=== PATIENT | female | born 1945 | race Asian ===

== ENCOUNTER 2022-03-12 10:50 | Day surgery (SDC) | payer MEDICARE ==
[2022-03-11 12:10] LABS: SARS-CoV-2 Antigen Rapid Res Negative (Negative)
[2022-03-12] MEDS ORDERED: Ringers Lactate 1,000 ML IV ONE (11:23)
[2022-03-12] MEDS ORDERED: LIDOCAINE 1% MPF 5 ML VIAL ONE (11:50)
[2022-03-12] MEDS ORDERED: TRIAMCINOLONE ACETON 40 MG/ML VIAL ONE (11:51)
[2022-03-12 11:55] VITALS: O2SAT 98
[2022-03-12] MEDS ORDERED: LIDOCAINE 2% MPF 5 ML VIAL ONE (13:12)
[2022-03-12] MEDS ORDERED: propofoL 200 MG/20 ML VIAL IV ONE ×2 (13:12→13:27)
[2022-03-12 14:30] VITALS: BP 150/73; TEMP 97.6
--- NOTE | 2022-03-12 15:55 | RAD REPORT ---
EXAM DESCRIPTION: RAD - Fluoro Guide Spinal Inj - 03/12/2022 2:06 pm CLINICAL HISTORY: INJECTION COMPARISON: No comparisons FINDINGS/IMPRESSION: Three fluoroscopic images submitted from an injection at the lumbar spine. Fluoro time: 40.7 seconds
== END 2022-03-12 14:25 | disposition home or self-care (01) ==
LOC: OR 10:50
PROVIDERS: ATTEND Pain Medicine Interventional Pain Medicine
PROC: B01BZZZ Fluoroscopy of Spinal Cord (ICD-10-PCS; 2022-03-12)
PROC: 3E0R3BZ Introduction of Anesthetic Agent into Spinal Canal, Percutaneous Approach (ICD-10-PCS; principal; 2022-03-12 13:00)
DX: M54.50 Low back pain, unspecified (principal); M54.12 Radiculopathy, cervical region; M46.1 Sacroiliitis, not elsewhere classified; M54.16 Radiculopathy, lumbar region; M60.9 Myositis, unspecified; G89.4 Chronic pain syndrome; I10 Essential (primary) hypertension; Z20.822 Contact with and (suspected) exposure to COVID-19
CPT/HCPCS: 36415; 77003; 87811; 62323; J2704 ×2; J3301; J2001 ×2; J7120

== ENCOUNTER 2024-06-16 23:20 | Emergency (ER) | payer MEDICARE ==
--- OUTSIDE RECORDS SUMMARY | 2024-06-16 23:25 | XMS REPORT | Continuity of Care Document ---
Author Name Unknown Address [address] [facility] [address] [place] [address] [facility] Address [address] [place] [address] Care Team Providers Care Deputy Treasurer Name Role Phone Bree Pineda MD, William Edward Primary Care Physi [facility] Arthur Giron Attending Clinician Unavailable BUBBA LANZA Attending Clinician Unavailable Luis Houston MD Attending Clinician LUIS HOUSTON Attending Clinician Unavailable Vilma Edge Attending Clinician [phone] [email or web address]_S Attending Clinician Unavaila lizeth LOVETT_T Attending Clinician Unavailable ABBI JAMES Attending Clinician Unavailab Abbi Mann DO Attending Clinician [phone] Doctor Unassigned, [place] Attending Clinician U navailable GAYLORD_S Attending Clinician Unavailable MARCELLO WASHINGTON Attending Clinician Unavailable Marcello Washington MD Attending Clinician [phone] DONNA PARADA Attending Clinician Unavailable Donna Parada PA-C Attending Clinician [phone] Khloe Mejia MD Attending Clinician [phone] MARIO HERNANDEZ Attending Clinician Unavailable Maroi Hicks S Attending Clinician [phone] Norbert ERICKSON, Yaima Koenig Attending Clinician Unavailab le Only, Ang Db Test Attending Clinician Unavailbenji e Unknown, Attending Attending Clinician Unavailab TERRY Ma Attending Clinician Unavailable UNKNOWN, ATTENDING Attending Clinician Unavailab NAVEEN Vega Attending Clinician Unavailable Naveen Guillen MD Attending Clinician [phone], [facility] Attending Clinician Unavailable KHLOE MEJIA Attending Clinician Unavai TONY Delcid Attending Clinician Unavail able Nurse, Adc Pob Immunization Attending Clinician Unavailable Tony Ibrahim DO Attending Clinician [phone] Lab, Ang - Db Attending Clinician Unavailable Gudelia Gaines Attending Clinician [phone] GUDELIA MCGRATH Attending Clinician Unavailable Melissa Morales Attending Clinician [phone] Joanna ERICKSON, Shima Attending Clinician Unavailab le Only, Gal Adult Uc Test Attending Clinician Unav ailable Pob, Ad[facility] Lab Main Attending Clinician UnavailGypsy Clinton MD Attending Clinician [phone] GYPSY CHEUNG Attending Clinician Unavailbenji e Provider, [facility] Attending Clinician Un available Rahel Stinson Attending Clinician [phone] RAHEL HENRIQUEZ Attending Clinician Unavailable Bubba Lanza MD Attending Clinician [phone] LOUISE JIMENEZ Attending Clinician Unavailable Only, Adc Test Attending Clinician Unavailable Jose Antonio Kaiser MD Attending Clinician [phone] Kinga ERICKSON, Allison Hogue Attending Clinician Unavail able Nigel Puri DO Attending Clinician [phone] NIGEL PURI Attending Clinician Unavailable Jeremías Quarles I Attending Clinician Unavailab diaz Shields BARKER OPERATOR, Karime Soria Attending Clinician [phone] Markus Edward Attending Clinician [phone] Jose PRINCE, Kong Attending Clinician [phone] VENESSA HERNANDEZ Attending Clinician Unavailable BLESSING UNGER Attending Clinician Unavailab diaz Fontenot MIRROR FINISHING MACHINE OPERATOR, Nesha Rogers Attending Clinician Unavail able Edmar PT, Annalisa Soria Attending Clinician Unavailab diaz Briceno PT, Delicia Attending Clinician Unavailable Macario ERICKSON, Sushma Attending Clinician BUBBA Lazo Admitting Clinician Unavailable [email or web address]_S Admitting Clinician Unavaila lizeth OWENS_T Admitting Clinician Unavailable ABBI JAMES Admitting Clinician Unavailab diaz GAYLORD_S Admitting Clinician Unavailable MARCELLO WASHINGTON Admitting Clinician Unavailable DONNA PARADA Admitting Clinician Unavailable NAVEEN GUILLEN Admitting Clinician Unavailable Bubba Lanza MD Admitting Clinician [phone] NIGEL PURI Admitting Clinician Unavailable Kong Garcia MD Admitting Clinician [phone] GYPSY CHEUNG Admitting Clinician Unavailabl BLESSING Pa Admitting Clinician Unavailab le Payers Payer Name Policy Type Policy Number Effective Date Expirati on Date Source [employer] MEDICARE ADVANTAGE [id number] 2019 00:00:00 [employer] Medicare [id number] 2023 00:00:00 [employer] (MEDICARE REPLACEMENT HMO) [id number] 2021 00:00:00 [employer] MEDICARE ADVANTAGE PLAN [id number] 2009 00:00:00 Problems Condition Name Condition Details Condition Category Status Onset Date Resolution Date Last Treatment Date Treating Clinician Comments Source Anal fissure Anal Fissure Problem Active 01-31 00:00: 00 [facility] Prolapse of female genital organs Prolapse of Female Genital Organs Problem Active 01-31 00:00: 00 [facility] Abnormal C-reactive protein Abnormal C-reactive protein Disease Active 0 715 00:00: 00 [facility] Multiple joint pain Multiple joint pain Disease Active 0 715 00:00: 00 Sumiyessenia tejas Van Epic Elevated C-reactive protein (CRP) Elevated C-reactive protein (CRP) Disease Active 0 7 00:00: 00 Sumiyessenia tejas Van Epic 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 Disease Active 0 15 00:00: 00 [facility] Epic 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 Active 0 15 00:00: 00 [facility]all [facility] Epic Gastroesop hageal reflux disease Gastroesop hageal reflux disease Disease Active 0 24 00:00: 00 [facility]all [facility] Hyperchole sterolemia Hyperchole sterolemia Problem Active 0 8-24 00:00: 00 [facility] Hypertensi ve disorder Hypertensi ve Disorder Problem Active 0 8-24 00:00: 00 [facility] Atrophic vaginitis Atrophic Vaginitis Problem Active 0 8-24 00:00: 00 [facility] Left lower quadrant pain Left Lower Quadrant Pain Problem Active 0 3-08 00:00: 00 [facility] Screening mammograph y Screening Mammograph y Problem Active 0 2-01 00:00: 00 [facility] Anxiety Anxiety Disease Active 0 1-24 00:00: 00 [facility]all Van Epic Pruritis of skin of anogenital region Pruritis of Skin of Anogenital Region Problem Active 0 9-16 00:00: 00 [facility] Constipati on Constipati on Problem Active 0 8-17 00:00: 00 [facility] 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 Active 0 8-17 00:00: 00 [facility] Lateral cystocele Lateral Cystocele Problem Active 0 8-17 00:00: 00 [facility] Lichen simplex chronicus Lichen Simplex Chronicus Problem Active 0 8-17 00:00: 00 [facility] Menopause present Menopause Present Problem Active 0 8-17 00:00: 00 [facility] Disorder associated with menstruati on AND/OR menopause Disorder Associated with Menstruati on AND/OR Menopause Problem Active 01-14 00:00: 00 [facility] Kidney stone Kidney stone Disease Active 07-11 00:00: 00 [facility] Ureteral stone with hydronephr osis Ureteral stone with hydronephr osis Disease Active 07-11 00:00: 00 Overview: Formattin g of this note might be different from the original. Added automatic ally from request for surgery [id number] [facility] Internal derangemen t of right knee Internal derangemen t of right knee Disease Active 12-28 00:00: 00 [facility] Vaginal atrophy Vaginal atrophy Disease Active 2018-06 00:00: 00 [facility] Jerome Left knee pain Left knee pain Disease Active 01-06 00:00: 00 [facility] Left knee pain Left knee pain Disease Active 01-06 00:00: 00 [facility] Essential hypertensi on Essential hypertensi on Disease Active 2014-06 00:00: 00 Kendall Jerome Hyperchole sterolemia Hyperchole sterolemia Disease Active 2014-06 00:00: 00 [facility] Jerome Chronic pain syndrome Chronic pain disorder Problem [facility] Chronic pain Chronic pain Problem [facility] Herpes simplex Herpes simplex Disease Resolve d 8-24 00:00: 00 2024-01-11 00:00:00 2024-01-11 17:28:46 Kendall Jerome Subacromia l bursitis of right shoulder joint Subacromia l bursitis of right shoulder joint Disease Resolve d 3-31 00:00: 00 2024-01-11 00:00:00 2024-01-11 17:28:46 Kendall Jerome Left lower quadrant pain Left lower quadrant pain Disease Resolve d 3-07 00:00: 00 2024-01-11 00:00:00 2024-01-11 17:28:46 [facility]all Jerome Candidiasi s of vagina Candidiasi s of vagina Disease Resolve d 2022-1 0-26 00:00: 00 2024-01-11 00:00:00 2024-01-11 17:28:46 Kendall Jerome Inflammati on of sacroiliac joint Inflammati on of sacroiliac joint Disease Resolve d 11-13 00:00: 00 2024-01-11 00:00:00 2024-01-11 17:28:46 Kendlal Jerome Ureteral stone with hydronephr osis Ureteral stone with hydronephr osis Disease Resolve d 1 00:00: 00 2024-01-11 00:00:00 2024-01-11 17:28:46 Kendall Jerome Internal derangemen t of right knee Internal derangemen t of right knee Disease Resolve d 12-28 00:00: 00 2024-01-11 00:00:00 2024-01-11 17:28:46 Kendall Jerome Rapid palpitatio ns Rapid palpitatio ns Disease Resolve d 12-27 00:00: 00 2024-01-11 00:00:00 2024-01-11 17:28:46 [facility]all Jerome Anal fissure Anal fissure Disease Resolve d 2018-06 2-30 00:00: 00 2024-01-11 00:00:00 2024-01-11 17:28:46 Kendall Jerome Allergies, Adverse Reactions, Alerts Allergy Name Allergy Type Status Severity Reaction(s) Onset Date Inactive Date Treating Clinician Comments Source PREDNISO NE DRUG INGREDI Active Other 01-10 00:00: 00 [facility] Predniso ne Propensi ty to adverse reaction s Active Other 01-10 00:00: 00 Hair loss Kendall Jerome Tetracyc line Allergy to substanc e Active 11-13 00:00: 00 Other Reaction( s): Not available Kendall Jerome B Complex- C-Min-Fe -Fa Propensi ty to adverse reaction s Active Rash 09-01 00:00: 00 Rash and itching all over to [facility] B COMPLEX- C-MIN-FE -FA DRUG Active Rash 2019-0 3-06 00:00: 00 [facility] Predniso ne Propensi ty to adverse reaction s Active Unknown - See comments 2014-06 00:00: 00 Stomach pain [facility] Tetracyc line Propensi ty to adverse reaction s Active Unknown - See comments 2014-06 00:00: 00 Yeast infection [facility] PREDNISO NE DRUG INGREDI Active Unknown-Cmnt 2014-06 00:00: 00 [facility] TETRACYC LINE DRUG INGREDI Active Unknown-Cmnt 2014-06 00:00: 00 [facility] Predniso ne Allergy to substanc e Active [facility] tetracyc line tetracyc line Active Unknown [facility] ALLERGIE S NOT ON FILE SYSTEMIC Active [facility] ALLERGIE S NOT ON FILE SYSTEMIC Active [facility] Social History Social Habit Start Date Stop Date Quantity Comments Source Sexual orientation 2024-01-05 07:00:23 Heterosexual (finding) [facility] Gender identity 2023-12-22 16:37:54 Identifies as female gender (finding) [facility] History of Tobacco Use [facility] Sex Assigned At [facility] Alcoholic beverage intake 2024-02-02 00:00:00 2024-02-02 00:00:00 Current drinker of alcohol (finding) [facility] History of Social function 2024-02-02 00:00:00 2024-02-02 00:00:[address] [facility] Alcohol intake 2023-03-29 00:00:00 2023-03-29 00:00:00 Current drinker of alcohol (finding) [facility] Exposure to SARS-CoV-2 (event) 2021-12-18 00:00:00 2021-12-28 08:39:00 Not sure [facility] Tobacco use and exposure 2020-07-20 00:00:00 2020-07-20 00:00:00 Smokeless tobacco non-user [facility] History SDOH Alcohol Frequency 2020-07-02 00:00:00 2020-07-02 00:00:00 99 [facility] History SDOH Alcohol Std Drinks 2020-07-02 00:00:00 2020-07-02 00:00:00 99 [facility] History SDOH Alcohol Binge 2020-07-02 00:00:00 2020-07-02 00:00:00 99 [facility] History SDOH Food Worry 2019-12-28 00:00:00 2019-12-28 00:00:00 1 [facility] History SDOH Food Scarcity 2019-12-28 00:00:00 2019-12-28 00:00:00 1 [facility] History SDOH Transport Med 2019-12-28 00:00:00 2019-12-28 00:00:00 2 [facility] History SDOH Transport Non-Med 2019-12-28 00:00:00 2019-12-28 00:00:00 2 [facility] Alcohol Comment 2018-04-21 00:00:00 2018-04-21 00:00:00 social [facility] Smoking Status Start Date Stop Date Source Never Smoker [facility] Medications Ordered Medication Name Filled Medication Name Start Date Stop Date Current Medication? Ordering Clinician Indication Dosage Frequency Signature (SIG) Comments Components Source traMADol HCl 50 MG traMADol HCl 50 MG 03-22 00:00: 00 No 1{table t_as_ne eded} BID traMADol HCl 50 MG traMADol (Ultram) 50 MG tablet traMADol (Ultram) 50 MG tablet 01-26 00:00: 00 01-10 00:00 :00 No 1{tbl} Q12H 1 tablet in the morning and 1 tablet in the evening. Kendall Jerome famotidine (Pepcid) 20 MG tablet famotidine (Pepcid) 20 MG tablet 01-10 14:08: 48 01-10 00:00 :00 No 1 tablet at bedtime as needed; Once a day; 30 day(s) Kendall Van [facility] triamcinolo ne (Kenalog) 0.1 % cream triamcinolo ne (Kenalog) 0.1 % cream 01-10 13:57: 49 Yes 1 applicatio n; Two times a Week; 30 days Kendall Van [facility] gabapentin (Neurontin) 100 MG capsule gabapentin (Neurontin) 100 MG capsule 01-10 13:57: 47 Yes TAKE 2 CAPSULES BY MOUTH EVERY 8 HOURS Oral for 5 Days Kendall tejas Rehan Epic erythromyci n (Romycin) 5 MG/GM ophthalmic ointment erythromyci n (Romycin) 5 MG/GM ophthalmic ointment 01-10 13:57: 45 Yes APPLY OINTMENT AT BEDTIME FOR 7 DAYS TO EYELIDS Kendall tejas Rehan Epic Pregabalin 50 MG Pregabalin 50 MG -19 00:00: 00 No 1{capsu le} BID Pregabalin 50 MG tiZANidine HCl 4 MG tiZANidine HCl 4 MG 2022-06 2-06 00:00: 00 No 1{table t_as_ne eded} tiZANidine HCl 4 MG ketorolac (TORADOL) injection 15 mg 2022-06 03:30: 00 03-30 02:41 :00 No 15mg 15 mg, Slow IV Push, ONCE, 1 dose, On 03/29/23 at 2230, Routine [facility] famotidine (PEPCID (PF)) injection 20 mg 2022-06 02:45: 00 03-30 02:41 :00 No 20mg 20 mg, Slow IV Push, ONCE, 1 dose, On 03/29/23 at 2145, [place] [facility] ketorolac tromethamin e (TORADOL) injection 15 mg 12-28 15:00: 00 12-28 15:01 :00 No 15mg 15 mg, Slow IV Push, ONCE, 1 dose, On 12/28/21 at 1000, [place] [facility] ibuprofen 600 mg tablet 12-28 00:00: 00 Yes [id number] 600mg Take 1 tablet by mouth every 8 (eight) hours as needed for Pain (scale 4-6). [facility] TRIAMCINOLO NE ACETONIDE 0.1 % ointment 08-23 00:00: 00 Yes [id number] APPLY OINTMENT TOPICALLY TWICE DAILY [facility] PROCTO-MED HC 2.5 % rectal cream 08-23 00:00: 00 Yes [id number] INSERT CREAM RECTALLY TWICE DAILY DIRECTED [facility] acetaminoph en-codeine (TYLENOL-CO DEINE #3) 300-30 mg tablet 07-06 00:00: 00 Yes [id number] 1{tbl} Take 1 tablet by mouth every 4 (four) hours as needed for Pain (scale 7-10). Indication s: acute pain [facility] methocarbam oL (ROBAXIN) 500 mg tablet 07-06 00:00: 00 Yes [id number] 500mg Take 1 tablet by mouth every 6 (six) hours as needed for Pain (scale 7-10) (MUSCLE SPASM). [facility] conjugated estrogens 1.25 mg tablet 07-02 00:00: 00 Yes [id number] 1.25mg Take 1 tablet by mouth daily. [facility] amLODIPine (Norvasc) 5 MG tablet amLODIPine (Norvasc) 5 MG tablet 2020-06 00:00: 00 Yes 1{tbl} QD Take 1 tablet by mouth 1 time each day. Kendall Van [facility] FLUCONAZOLE 150 mg tablet 03-20 00:00: 00 Yes [id number] TAKE ONE TABLET BY MOUTH A ONE-TIME DOSE [facility] TRIAMCINOLO NE ACETONIDE 0.1 % ointment 03-20 00:00: 00 08-23 00:00 :00 No [id number] APPLY OINTMENT TOPICALLY TWICE DAILY [facility] loratadine 10 mg tablet 03-06 00:00: 00 Yes [id number] 10mg Take 1 tablet by mouth daily. [facility] cefUROXime 500 mg tablet 02-12 00:00: 00 Yes [id number] 500mg Take 1 tablet by mouth 2 (two) times daily. [facility] mupirocin 2 % ointment 11-12 00:00: 00 Yes [id number] Apply to area(s) 3 (three) times daily. [facility] famotidine (PEPCID) 20 mg tablet 24 14:22: 04 Yes 20mg Take 20 mg by mouth 2 (two) times daily. [facility] acetaminoph en (TYLENOL) 325 mg tablet 07-26 00:00: 00 Yes [id number] 650mg Take 2 tablets by mouth every 6 (six) hours as needed for Pain (scale 1-3) or Alternate with ibuprofen for pain scale 4-6. [facility] conjugated estrogens (PREMARIN) 0.625 mg/gram vaginal cream 12-29 00:00: 00 Yes [id number] .5g Insert 0.5 g into vagina 2 (two) times per week for Other (vaginal atrophy). [facility] acyclovir 200 mg capsule TAKE 1 CAPSULE BY MOUTH TWICE DAILY acyclovir 200 mg capsule TAKE 1 CAPSULE BY MOUTH TWICE DAILY No acyclovir 200 mg capsule TAKE 1 CAPSULE BY MOUTH TWICE DAILY [facility] atorvastati n 20 mg tablet TAKE 1 TABLET BY MOUTH ONCE DAILY FOR 90 DAYS atorvastati n 20 mg tablet TAKE 1 TABLET BY MOUTH ONCE DAILY FOR 90 DAYS No atorvastat in 20 mg tablet TAKE 1 TABLET BY MOUTH ONCE DAILY FOR 90 DAYS [facility] estradiol 0.01% (0.1 mg/gram) vaginal cream INSERT 0.5 GRAMS VAGINALLY THREE TIMES A WEEK AT BEDTIME estradiol 0.01% (0.1 mg/gram) vaginal cream INSERT 0.5 GRAMS VAGINALLY THREE TIMES A WEEK AT BEDTIME No estradiol 0.01% (0.1 mg/gram) vaginal cream INSERT 0.5 GRAMS VAGINALLY THREE TIMES A WEEK AT BEDTIME [facility] losartan 100 mg-hydrochl orothiazide 12.5 mg tablet TAKE 1 TABLET BY MOUTH ONCE DAILY losartan 100 mg-hydrochl orothiazide 12.5 mg tablet TAKE 1 TABLET BY MOUTH ONCE DAILY No losartan 100 mg-hydroch lorothiazi de 12.5 mg tablet TAKE 1 TABLET BY MOUTH ONCE DAILY [facility] pantoprazol e 40 mg tablet,chhaya yed release TAKE 1 TABLET BY MOUTH ONCE DAILY pantoprazol e 40 mg tablet,chhaya yed release TAKE 1 TABLET BY MOUTH ONCE DAILY No pantoprazo le 40 mg tablet,del ayed release TAKE 1 TABLET BY MOUTH ONCE DAILY [facility] Stool Softener Stool Softener No Stool Softener [facility] triamcinolo ne acetonide 0.5 % topical ointment APPLY A THIN LAYER OF OINTMENT TOPICALLY TO AFFECTED AREA TWICE DAILY triamcinolo ne acetonide 0.5 % topical ointment APPLY A THIN LAYER OF OINTMENT TOPICALLY TO AFFECTED AREA TWICE DAILY No triamcinol one acetonide 0.5 % topical ointment APPLY A THIN LAYER OF OINTMENT TOPICALLY TO AFFECTED AREA TWICE DAILY [facility] diclofenac sodium 75 mg tablet,chhaya yed release TAKE 1 TABLET BY MOUTH TWICE DAILY diclofenac sodium 75 mg tablet,chhaya yed release TAKE 1 TABLET BY MOUTH TWICE DAILY No diclofenac sodium 75 mg tablet,del ayed release TAKE 1 TABLET BY MOUTH TWICE DAILY [facility] pregabalin 50 mg capsule TAKE 1 CAPSULE BY MOUTH TWICE DAILY pregabalin 50 mg capsule TAKE 1 CAPSULE BY MOUTH TWICE DAILY No pregabalin 50 mg capsule TAKE 1 CAPSULE BY MOUTH TWICE DAILY [facility] ergocalcife rol (vitamin D2) 1,250 mcg (50,000 unit) capsule TAKE 1 CAPSULE BY MOUTH ONCE A WEEK ergocalcife rol (vitamin D2) 1,250 mcg (50,000 unit) capsule TAKE 1 CAPSULE BY MOUTH ONCE A WEEK No ergocalcif stephanie (vitamin D2) 1,250 mcg (50,000 unit) capsule TAKE 1 CAPSULE BY MOUTH ONCE A WEEK [facility] methylpredn isolone 4 mg tablet TAKE 2 TABLETS BY MOUTH ONCE DAILY methylpredn isolone 4 mg tablet TAKE 2 TABLETS BY MOUTH ONCE DAILY No methylpred nisolone 4 mg tablet TAKE 2 TABLETS BY MOUTH ONCE DAILY [facility] Nifedipine 0.2%/Lidoca ine 4% Cream use small amount at anus 2 times a day Nifedipine 0.2%/Lidoca ine 4% Cream use small amount at anus 2 times a day No Nifedipine 0.2%/Lidoc troy 4% Cream use small amount at anus 2 times a day [facility] Estradiol 0.1 MG/GM Estradiol 0.1 MG/GM No Estradiol 0.1 MG/GM Pantoprazol e Sodium 40 MG Pantoprazol e Sodium 40 MG No Pantoprazo le Sodium 40 MG Diclofenac Sodium 75 MG Diclofenac Sodium 75 MG No Diclofenac Sodium 75 MG Xiidra 5 % Xiidra 5 % No Xiidra 5 % Losartan Potassium-H CTZ 100-12.5 MG Losartan Potassium-H CTZ 100-12.5 MG No Losartan Potassium- HCTZ 100-12.5 MG Lagevrio 200 MG Lagevrio 200 MG No Lagevrio 200 MG Atorvastati n Calcium 20 MG Atorvastati n Calcium 20 MG No Atorvastat in Calcium 20 MG Triamcinolo ne Acetonide 0.5 % Triamcinolo ne Acetonide 0.5 % No Triamcinol one Acetonide 0.5 % Immunizations Ordered Immunization Name Filled Immunization Name Date Status Comments Source SARS-COV-2 COVID-19 [facility]ERNA BOOSTER VACCINE 2021-05-29 00:00:00 Completed [facility] SARS-COV-2 COVID-19 MODERNA BOOSTER VACCINE 2021-05-29 00:00:00 Completed [facility] SARS-COV-2 COVID-19 MODERNA BOOSTER VACCINE 2021-05-29 00:00:00 Completed [facility] SARS-COV-2 COVID-19 MODERNA BOOSTER VACCINE 2021-05-29 00:00:00 Completed [facility] SARS-COV-2 COVID-19 MODERNA BOOSTER VACCINE 2021-05-29 00:00:00 Completed [facility] SARS-COV-2 COVID-19 MODERNA 0.25ML BOOSTER VACCINE 2021-05-29 00:00:00 Completed [facility] SARS-COV-2 COVID-19 MODERNA 0.25ML BOOSTER VACCINE 2021-05-29 00:00:00 Completed [facility] SARS-COV-2 COVID-19 MODERNA 0.25ML BOOSTER VACCINE 2021-05-29 00:00:00 Completed [facility] TDAP 2020-11-09 00:00:00 Completed [facility] TDAP 2020-11-09 00:00:00 Completed [facility] TDAP 2020-11-09 00:00:00 Completed [facility] TDAP 2020-11-09 00:00:00 Completed [facility] TDAP 2020-11-09 00:00:00 Completed [facility] TDAP 2020-11-09 00:00:00 Completed [facility] TDAP 2020-11-09 00:00:00 Completed [facility] TDAP 2020-11-09 00:00:00 Completed [facility] SARS-COV-2 COVID-19 MODERNA VACCINE 2020-08-29 00:00:00 Completed [facility] SARS-COV-2 COVID-19 MODERNA VACCINE 2020-08-29 00:00:00 Completed [facility] SARS-COV-2 COVID-19 MODERNA VACCINE 2020-08-29 00:00:00 Completed [facility] SARS-COV-2 COVID-19 MODERNA VACCINE 2020-08-29 00:00:00 Completed [facility] SARS-COV-2 COVID-19 MODERNA VACCINE 2020-08-29 00:00:00 Completed [facility] SARS-COV-2 COVID-19 MODERNA VACCINE 2020-08-29 00:00:00 Completed [facility] SARS-COV-2 COVID-19 MODERNA VACCINE 2020-08-29 00:00:00 Completed [facility] SARS-COV-2 COVID-19 MODERNA 12+ YRS VACCINE 2020-08-29 00:00:00 Completed [facility] SARS-COV-2 COVID-19 MODERNA VACCINE 2020-08-02 00:00:00 Completed [facility] SARS-COV-2 COVID-19 MODERNA VACCINE 2020-08-02 00:00:00 Completed [facility] SARS-COV-2 COVID-19 MODERNA VACCINE 2020-08-02 00:00:00 Completed [facility] SARS-COV-2 COVID-19 MODERNA VACCINE 2020-08-02 00:00:00 Completed [facility] SARS-COV-2 COVID-19 MODERNA VACCINE 2020-08-02 00:00:00 Completed [facility] SARS-COV-2 COVID-19 MODERNA VACCINE 2020-08-02 00:00:00 Completed [facility] SARS-COV-2 COVID-19 MODERNA VACCINE 2020-08-02 00:00:00 Completed [facility] SARS-COV-2 COVID-19 MODERNA 12+ YRS VACCINE 2020-08-02 00:00:00 Completed [facility] Influenza Virus Vaccine 2020-04-17 00:00:00 Completed [facility] Influenza Virus Vaccine 2020-04-17 00:00:00 Completed [facility] Influenza Virus Vaccine 2020-04-17 00:00:00 Completed [facility] Influenza Virus Vaccine 2020-04-17 00:00:00 Completed [facility] Influenza Virus Vaccine 2020-04-17 00:00:00 Completed [facility] Influenza Virus Vaccine 2020-04-17 00:00:00 Completed [facility] Influenza Virus Vaccine 2020-04-17 00:00:00 Completed [facility] Influenza Virus Vaccine 2020-04-17 00:00:00 Completed [facility] Influenza Virus Vaccine Recomb Quad IM, Preserv and ABX Free 18-64 YRS 2019-04-14 00:00:00 Completed [facility] Pneumococcal Polysaccharide, PPSV23 (PNEUMOVAX) 2019-04-14 00:00:00 Completed [facility] Influenza Virus Vaccine Recomb Quad IM, Preserv and ABX Free 18-64 YRS 2019-04-14 00:00:00 Completed [facility] Pneumococcal Polysaccharide, PPSV23 (PNEUMOVAX) 2019-04-14 00:00:00 Completed [facility] Influenza Virus Vaccine Recomb Quad IM, Preserv and ABX Free 18-64 YRS 2019-04-14 00:00:00 Completed [facility] Pneumococcal Polysaccharide, PPSV23 (PNEUMOVAX) 2019-04-14 00:00:00 Completed [facility] Influenza Virus Vaccine Recomb Quad IM, Preserv and ABX Free 18-64 YRS 2019-04-14 00:00:00 Completed [facility] Pneumococcal Polysaccharide, PPSV23 (PNEUMOVAX) 2019-04-14 00:00:00 Completed [facility] Influenza Virus Vaccine Recomb Quad IM, Preserv and ABX Free 18-64 YRS 2019-04-14 00:00:00 Completed [facility] Pneumococcal Polysaccharide, PPSV23 (PNEUMOVAX) 2019-04-14 00:00:00 Completed [facility] Influenza Virus Vaccine Recomb Quad IM, Preserv and ABX Free 18-64 YRS 2019-04-14 00:00:00 Completed [facility] Pneumococcal Polysaccharide, PPSV23 (PNEUMOVAX) 2019-04-14 00:00:00 Completed [facility] Influenza Virus Vaccine Recomb Quad IM, Preserv and ABX Free 18-64 YRS 2019-04-14 00:00:00 Completed [facility] Pneumococcal Polysaccharide, PPSV23 (PNEUMOVAX) 2019-04-14 00:00:00 Completed [facility] Influenza Virus Vaccine Recomb Quad IM, Preserv and ABX Free 18-64 YRS 2019-04-14 00:00:00 Completed [facility] Pneumococcal Polysaccharide, PPSV23 (PNEUMOVAX) 2019-04-14 00:00:00 Completed [facility] Influenza Virus Vaccine 2017-04-04 00:00:00 Completed [facility] Influenza Virus Vaccine 2017-04-04 00:00:00 Completed [facility] Influenza Virus Vaccine 2017-04-04 00:00:00 Completed [facility] Influenza Virus Vaccine 2017-04-04 00:00:00 Completed [facility] Influenza Virus Vaccine 2017-04-04 00:00:00 Completed [facility] Influenza Virus Vaccine 2017-04-04 00:00:00 Completed [facility] Influenza Virus Vaccine 2017-04-04 00:00:00 Completed [facility] Influenza Virus Vaccine 2017-04-04 00:00:00 Completed [facility] Td 1990-11-14 00:00:00 Completed [facility] Td 1990-11-14 00:00:00 Completed [facility] Td 1990-11-14 00:00:00 Completed [facility] Td 1990-11-14 00:00:00 Completed [facility] Td 1990-11-14 00:00:00 Completed [facility] Td 1990-11-14 00:00:00 Completed [facility] Td 1990-11-14 00:00:00 Completed [facility] TD, NOS 1990-11-14 00:00:00 Completed [facility] Influenza Virus Vaccine Unknown Completed [facility] TD, NOS Unknown Completed [facility] Influenza Virus Vaccine Recomb Quad IM, Preserv and ABX Free 1864 YRS Unknown Completed [facility] Pneumococcal Polysaccharide, PPSV23 (PNEUMOVAX) Unknown Completed [facility] SARS-COV-2 COVID-19 MODERNA 12+ YRS VACCINE Unknown Completed [facility] TDAP Unknown Completed [facility] SARS-COV-2 COVID-19 MODERNA 0.25ML BOOSTER VACCINE Unknown Completed [facility] Vital Signs Vital Name Observation Time Observation Value Comments S mayra Body Weight 2024-04-04 00:00:00 177.4 [lb_av] [facility] Height 2024-04-04 00:00:00 63 [in_i] [facility] BMI (Body Mass Index) 2024-04-04 00:00:00 31.4 kg/m2 [facility] BP Systolic 2024-04-04 00:00:00 142 mm[Hg] [facility] BP Diastolic 2024-04-04 00:00:00 65 mm[Hg] [facility] BMI (Body Mass Index) 2024-03-09 00:00:00 31.2 kg/m2 [facility] Body Weight 2024-03-09 00:00:00 176 [lb_av] [facility] BP Systolic 2024-03-09 00:00:00 157 mm[Hg] [facility] BP Diastolic 2024-03-09 00:00:00 79 mm[Hg] [facility] Height 2024-03-09 00:00:00 63 [in_i] [facility] height 2024-02-24 09:30:00 64 [in_i] [facility] weight-kg 2024-02-24 09:30:00 83.91 kg [facility] bmi 2024-02-24 09:30:00 31.75 kg/m2 Kathy r [facility] heart rate 2024-02-24 09:30:00 68 /min [facility] blood pressure systolic 2024-02-24 09:30:00 136 mm[Hg] [facility] blood pressure diastolic 2024-02-24 09:30:00 78 mm[Hg] [facility] Systolic blood pressure 2024-02-02 08:42:00 154 mm[Hg] [facility] marie Epic Diastolic blood pressure 2024-02-02 08:42:00 90 mm[Hg] [facility] marie Epic Heart rate 2024-02-02 08:42:00 72 /min Rebecca gunter Yancey Epic Body weight 2024-02-02 08:42:00 81.647 kg Oliver jordantejas Rehan Epic BMI 2024-02-02 08:42:00 30.90 kg/m2 Oliver ortegatejas Rehan Epic Systolic blood pressure 2024-02-02 08:42:00 154 mm[Hg] [facility] marie Epic Diastolic blood pressure 2024-02-02 08:42:00 90 mm[Hg] [facility] marie Epic Heart rate 2024-02-02 08:42:00 72 /min Memor ial Rehan Epic Body weight 2024-02-02 08:42:00 81.647 kg Oliver lon Maresann Epic BMI 2024-02-02 08:42:00 30.90 kg/m2 Oliver lon Maresann Epic BMI (Body Mass Index) 2024 00:00:00 32 kg/m2 [facility] Body Weight 2024 00:00:00 180.6 [lb_av] [facility] BP Diastolic 2024 00:00:00 71 mm[Hg] [facility] BP Systolic 2024 00:00:00 163 mm[Hg] [facility] Height 2024 00:00:00 63 [in_i] [facility] height 2024-01-27 09:30:00 64 [in_i] [facility] weight-kg 2024-01-27 09:30:00 83.91 kg [facility] bmi 2024-01-27 09:30:00 31.75 kg/m2 Kathy r [facility] heart rate 2024-01-27 09:30:00 64 /min [facility] blood pressure systolic 2024-01-27 09:30:00 133 mm[Hg] [facility] blood pressure diastolic 2024-01-27 09:30:00 75 mm[Hg] [facility] Systolic blood pressure 2024-01-11 13:46:00 146 mm[Hg] [facility] Epic Diastolic blood pressure 2024-01-11 13:46:00 79 mm[Hg] [facility] Epic Heart rate 2024-01-11 13:46:00 82 /min Memor ial Yancey Epic Body height 2024-01-11 13:46:00 162.6 cm Oliver lon Van Epic Body weight 2024-01-11 13:46:00 82.555 kg Oliver lon Maresann Epic BMI 2024-01-11 13:46:00 31.24 kg/m2 Oliver jordanl Rehan Epic Systolic blood pressure 2024-01-11 13:46:00 146 mm[Hg] [facility] Her marie Epic Diastolic blood pressure 2024-01-11 13:46:00 79 mm[Hg] [facility] Her marie Epic Heart rate 2024-01-11 13:46:00 82 /min Memor ial Rehan Epic Body height 2024-01-11 13:46:00 162.6 cm Oliver lon Van Epic Body weight 2024-01-11 13:46:00 82.555 kg Oliver lon Van Epic BMI 2024-01-11 13:46:00 31.24 kg/m2 Oliver lon Van Epic Height 2023-09-02 00:00:00 63 [in_i] [facility] Body Weight 2023-09-02 00:00:00 192.4 [lb_av] [facility] BP Systolic 2023-09-02 00:00:00 180 mm[Hg] [facility] BMI (Body Mass Index) 2023-09-02 00:00:00 34.1 kg/m2 [facility] BP Diastolic 2023-09-02 00:00:00 80 mm[Hg] [facility] Systolic blood pressure 2023-03-30 03:45:00 166 mm[Hg] [facility] Diastolic blood pressure 2023-03-30 03:45:00 65 mm[Hg] [facility] Heart rate 2023-03-30 03:45:00 64 /min [facility] Respiratory rate 2023-03-30 03:45:00 15 /min [facility] Oxygen saturation in Arterial blood by Pulse oximetry 2023-03-30 03:45:00 100 /min [facility] Body temperature 2023-03-30 02:21:00 37.33 Whitney [facility] Body height 2023-03-30 02:21:00 162.6 cm [facility] Body weight 2023-03-30 02:21:00 89.812 kg [facility] BMI 2023-03-30 02:21:00 33.99 kg/m2 [facility] Systolic blood pressure 2021-12-28 18:00:00 171 mm[Hg] [facility] Diastolic blood pressure 2021-12-28 18:00:00 91 mm[Hg] [facility] Heart rate 2021-12-28 18:00:00 65 /min Un[facility] Respiratory rate 2021-12-28 18:00:00 23 /min [facility] Oxygen saturation in Arterial blood by Pulse oximetry 2021-12-28 18:00:00 100 /min [facility] Body temperature 2021-12-28 13:43:00 37.56 Whitney [facility] Body height 2021-12-28 13:41:00 162.6 cm [facility] Body weight 2021-12-28 13:41:00 90.719 kg [facility] BMI 2021-12-28 13:41:00 34.33 kg/m2 [facility] acute hospital Systolic blood pressure 2021-08-09 14:43:00 135 mm[Hg] [facility] Diastolic blood pressure 2021-08-09 14:43:00 68 mm[Hg] [facility] Heart rate 2021-08-09 14:43:00 73 /min Unive [facility] Body height 2021-08-09 14:43:00 162.6 cm [facility] Body weight 2021-08-09 14:43:00 91.627 kg [facility] BMI 2021-08-09 14:43:00 34.67 kg/m2 [facility] acute hospital Oxygen saturation in Arterial blood by Pulse oximetry 2021-08-09 14:43:00 95 /min [facility] Procedures Procedure Date / Time Performed Performing Clinician Source MAMMO, screening, digital, bilateral 2024-03-09 00:00:00 [facility] Sedimentation Rate 2024-02-02 00:00:00 [facility] C-Reactive Protein 2024-02-02 00:00:00 [facility] Complete Blood Count w/Diff and Platelet 2024-02-02 00:00:[address] [facility] Comprehensive Metabolic Panel 2024-02-02 00:00:[address] [facility] Vitamin D 25-Hydroxy 2024-01-11 00:00:[address] [facility] Ferritin 2024-01-11 00:00:[address] [facility] Uric Acid 2024-01-11 00:00:[address] [facility] Rheumatoid Factor 2024-01-11 00:00:00 [facility] orial [facility] Hepatitis B Surface Antigen 2024-01-11 00:00:[address] [facility] Hepatitis C Antibody w/HCV RNA PCR if Indicated 2024-01-11 00:00:[address] [facility] Hepatitis B core AB Total w/refl IgM 2024-01-11 00:00:[address] [facility] Cyclic Citrul Peptide Antibody IgG 2024-01-11 00:00:[address] [facility] US soft tissue extremity complete 2024-01-11 00:00:[address] [facility] XR CHEST 1 VW 2023-03-30 03:16:32 Abbi James U [facility] LIPASE 2023-03-30 02:28:00 Abbi James [facility] TROPONIN I 2023-03-30 02:28:00 Abbi James [facility] COMP. METABOLIC PANEL (73048) 2023-03-30 02:28:00 Abbi James [facility] CBC WITH DIFF 2023-03-30 02:28:00 Abbi James [facility] HB ECG ROUTINE & RHYTHM STRIP 2023-03-30 02:22:52 Abbi James [facility] NOTICE OF PRIVACY PRACTICES 2023-03-30 02:16:49 Doctor Unassigned, [place] [facility] CONSENT/REFUSAL FOR DIAGNOSIS AND TREATMENT 2023-03-30 02:16:26 Doctor Unassigned, [place] [facility] REFERRAL- REQUEST/RESPONSE 2022-11-07 05:01:00 Preston amaya Unassigned, [place] [facility] TROPONIN I 2021-12-28 16:43:00 Marcello [place] [facility] XR CHEST 1 VW 2021-12-28 14:20:20 Marcello [place] [facility] XR SHOULDER 2+ VW LEFT 2021-12-28 14:20:20 Darrel Washington [facility] COVID-19 (ID NOW RAPID TESTING) 2021-12-28 13:59:00 Marcello Washington [facility] TROPONIN I 2021-12-28 13:50:00 Marcello [place] [facility] COMP. METABOLIC PANEL (41460) 2021-12-28 13:50:00 Marcello Washington [facility] CBC WITH DIFF 2021-12-28 13:50:00 Marcello [place] [facility] PROTHROMBIN TIME / INR 2021-12-28 13:50:00 Darrel Washington [facility] ACTIVATED PARTIAL THRMPLAS CARMELLA 2021-12-28 13:50:00 Marcello Washington [facility] N-TERMINAL PRO-BNP 2021-12-28 13:50:00 Marcello Washington [facility] CONSENT/REFUSAL FOR DIAGNOSIS AND TREATMENT 2021-12-28 13:40:41 Doctor Unassigned, [place] [facility] EXTERNAL PROVIDER RECORDS 2021-11-16 05:01:00 Do ctor Unassigned, [place] [facility] XR FOOT <3 VW LEFT 2021-08-09 15:25:00 Mario Hernandez [facility] Delivery 1988-06-29 00:00:00 [facility] Procedure on Lower Leg 1988-06-29 00:00:00 [facility] Cholecystectomy (Gallbladder) 1987-06-29 00:00:00 [facility] Hysterectomy 1976-06-29 00:00:00 Ric Marie edical Encounters Start Date/Time End Date/Time Encounter Type Admission Type Attending [facility] Care Facility Care Department Encounter ID Source 2024-01-27 09:24:01 Outpatient Giron, Arthur CLS [facility] [id number] [facility] 2021-04-27 17:10:27 Outpatient BUBBA LANZA [facility] [id number] [facility] 2021-04-27 16:55:02 Emergency [facility] [id number] [facility] 2021-04-27 08:54:50 Emergency [facility] [id number] [facility] 2021-04-26 16:13:37 Emergency [facility] [id number] [facility] 2021-04-26 03:50:58 Emergency [facility] [id number] [facility] 2024-04-04 00:00:00 2024-04-04 00:00:00 ANAM Kilgore: [address], [place] [address] , Ph. [facility] - GC_GCBZW_Michelle Cardoso* [id number] [facility] 2024-03-22 00:00:00 2024-03-22 00:00:00 (TEL) [facility] [id number] [facility] 2024-03-09 00:00:00 2024-03-09 00:00:00 ANAM Kilgore: [address], [place] [address] , Ph. [facility] - GC_GCBZW_Michelle Cardoso* [id number] [facility] 2024-02-24 00:00:00 2024-02-24 00:00:00 Office Visit- Est Pt.- Level 4 [facility] [id number] [facility] 2024-02-11 00:00:00 2024-02-11 00:00:00 (Pain Mgmt) Pain Mgmt Procedures [facility] [id number] [facility] 2024-02-02 08:50:00 2024-02-02 09:29:00 Consult Luis Houston Rheumatol [facility] 1.2.840.114 350.1.13.70 8.2.7.2.686 [id number] Memoria l [facility] 2024-02-02 08:24:44 2024-02-02 09:29:00 Outpatient Elective LUIS HOUSTON MHEOUT MHEOUT [id number] MHEOUT 2024 00:00:00 2024 00:00:00 (TEL) [facility] [id number] [facility] 2024 00:00:00 2024 00:00:00 SUZANNE [place]: [address], [place] [address] , Ph. [facility] - GC_GCBZW_Michelle Cardoso* [id number] [facility] 2024-01-27 00:00:00 2024-01-27 00:00:00 Office Visit- Est Pt.- Level 4 CLS CLS [id number] [facility] 2024-01-19 08:30:50 2024-01-19 08:59:20 Outpatient Elective MHEOUT MHEOUT [id number] [facility]OUT 2024-01-11 14:30:00 2024-01-11 14:40:30 Consult Luis Houston Rheumatol [facility] 1.2.840.114 350.1.13.70 8.2.7.2.[id number] [facility] 2024-01-11 13:02:03 2024-01-11 14:40:30 Outpatient Elective LUIS HOUSTON MHEOUT MHEOUT [id number] [facility] 2023-10-15 13:30:00 2023-10-15 14:00:00 Annual D2Ne [place] [place] 2.16.840. [id number]. [id number] [facility] 2023-09-17 00:00:00 2023-09-17 00:00:00 Outpatient GC_GCBZW_Ka diyala_S [facility] [id number] [facility] 2023-09-02 00:00:00 2023-09-02 00:00:00 ANAM Kilgore: [address], [place] [address] , Ph. [facility] - GC_GCBZW_Michelle Cardoso* [id number] [facility] 2023-08-13 00:00:00 2023-08-13 00:00:00 Outpatient GC_GCBZW_Ka diyala_S [facility] [id number] [facility] 2023-08-12 00:00:00 2023-08-12 00:00:00 Outpatient GC_GCBZW_Ka diyala_S PRIV PRIV [id number] [facility] 2023-07-22 00:00:00 2023-07-22 00:00:00 Outpatient GC_GCBZW_Ka diyala_S PRIV PRIV [id number] [facility] 2023-05-16 00:00:00 2023-05-16 00:00:00 Outpatient GC_GCBZW_Ka diyala_S PRIV PRIV [id number] [facility] 2023-04-29 00:00:00 2023-04-29 00:00:00 Outpatient RACHELLBravo [facility]DONADO [facility] [id number] [facility] 2023-04-18 00:00:00 2023-04-18 00:00:00 Outpatient GC_GCBZW_Ka diyala_S PRIV PRIV [id number] [facility] 2023-03-29 21:25:00 2023-03-29 22:56:00 Emergency X ABBI JAMES [facility] ERT [id number] [facility] 2023-03-29 21:25:00 2023-03-29 22:56:00 Emergency Abbi James [facility] [id number] 350.1.13.10 4.2.7.2.686 [id number] [facility] 2023-03-21 00:00:00 2023-03-21 00:00:00 Outpatient GC_GCBZW_Ka diyala_S PRIV PRIV [id number] [facility] 2023-03-04 00:00:00 2023-03-04 00:00:00 Outpatient GC_GCBZW_Ka diyala_S PRIV PRIV [id number] [facility] 2023-02-18 00:00:00 2023-02-18 00:00:00 Outpatient GC_GCBZW_Ka diyala_S PRIV PRIV [id number] [facility] 2023-01-01 00:00:00 2023-01-01 00:00:00 Outpatient OWENS_T DMG DMG [id number] [facility] 2023-01-01 00:00:00 2023-01-01 00:00:00 Outpatient OWENS_T DMG DMG [id number] [facility] 2022-11-07 00:00:00 2022-11-07 00:00:00 Orders Only Doctor Unassigned, [place] [facility] 1..840.114 350.1.13.10 4.2.7.2.686 [id number] [facility] 2022-08-12 00:00:00 2022-08-12 00:00:00 Outpatient OWENS_T DMG DMG [id number] [facility] 2022-08-12 00:00:00 2022-08-12 00:00:00 Outpatient OWENS_T DMG DMG [id number] [facility] 2022-01-10 03:42:00 2022-01-10 03:42:00 Outpatient GAYLORD_S DMG DMG [id number] [facility] 2022-01-07 03:05:00 2022-01-07 03:05:00 Outpatient GAYLORD_S DMG DMG [id number] [facility] 2021-12-28 08:36:00 2021-12-28 13:13:00 Emergency X MARCELLO WASHINGTON [facility] ERT [id number] [facility] 2021-12-28 08:36:00 2021-12-28 13:13:00 Emergency Marcello Washington [facility] 1..840.114 350.1.13.10 4.2.7.2.686 [id number] [facility] 2021-11-18 09:00:00 2021-11-18 09:00:00 Outpatient DMG DMG [id number] [facility] 2021-11-16 00:00:00 2021-11-16 00:00:00 Orders Only Doctor Unassigned, [place] [facility] 1.2840.114 350.1.13.10 4.2.7.2.686 [id number] [facility] 2021-10-09 05:00:00 2021-10-09 05:00:00 Outpatient DMG [facility] [id number] [facility] 2021-09-20 13:03:05 2021-09-20 23:59:00 Outpatient R TAL [facility] [id number] [facility] 2021-09-20 13:03:05 2021-09-20 23:59:00 Hospital Encounter Nigelbeatriceethan Donna [facility] 1.2.840.114 350.1.13.10 4.2.7.2.686 [id number] [facility] 2021-08-23 00:00:00 2021-08-23 00:00:00 Refill Khloe Mej[facility] 1..840.114 350.1.13.10 4.2.7.2.686 [id number] [facility] 2021-08-23 00:00:00 2021-08-23 00:00:00 Refill Sarahethan [facility] BUILDING 1.2.840.114 350.1.13.10 4.2.7.2.686 [id number] [facility] 2021-08-09 09:15:00 2021-08-09 23:59:00 Outpatient R MARIO HERNANDEZ [facility] [id number] [facility] 2021-08-09 09:15:00 2021-08-09 23:59:00 Hospital Encounter Mario Hernandez [facility] 1.2.840.114 350.1.13.10 4.2.7.2.686 [id number] [facility] 2021-08-09 09:15:00 2021-08-09 09:15:00 Outpatient R HERNANDEZ MARIO [facility] [id number] [facility] 2021-08-09 08:30:00 2021-08-09 09:00:00 Office Visit Mario Hernandez [facility] 1.84114 350.1.13.10 4.2.7.2.686 [id number] [facility] 2021-08-09 00:00:00 2021-08-09 00:00:00 Orders Only Doctor Unassigned, [place] [facility] 1.84114 350.1.13.10 4.2.7.2.686 [id number] [facility] 2021-08-08 00:00:00 2021-08-08 00:00:00 Telephone Khloe Mejia [facility] 1.84114 350.1.13.10 4.2.7.2.686 [id number] [facility] 2021-07-09 00:00:00 2021-07-09 00:00:00 Letter (Out) Yaima Toussaint [facility] 1.114 350.1.13.10 4.2.7.2.686 [id number] [facility] 2021-07-08 09:30:00 2021-07-08 09:45:00 Laboratory Only Only, Ang Db Test Unknown, Attending [facility] 1.84114 350.1.13.10 4.2.7.2.686 [id number] [facility] 2021-07-08 09:30:00 2021-07-08 09:30:00 Outpatient R TERRY MANCIA [facility] [id number] [facility] 2021-07-08 00:00:00 2021-07-08 00:00:00 Letter (Out) Doctor Unassigned, [place] [facility] 1.2.840.114 350.1.13.10 4.2.7.2.686 [id number] [facility] 2021-07-08 00:00:00 2021-07-08 00:00:00 Letter (Out) Doctor Unassigned, [place] [facility] 1.2840.114 350.1.13.10 4.2.7.2.686 [id number] [facility] 2021-07-06 18:45:00 2021-07-06 18:45:00 Outpatient R UNKNOWN, ATTENDING [facility] [id number] [facility] 2021-07-06 13:58:00 2021-07-06 18:20:00 Emergency X NAVEEN GUILLEN [facility] ERT [id number] [facility] 2021-07-06 13:58:00 2021-07-06 18:20:00 Emergency Naveen Guillen [facility] 1.2840.114 350.1.13.10 4.2.7.2.686 [id number] [facility] 2021-07-04 15:45:00 2021-07-04 16:00:00 Oyster Shucker Visit 2, Adc Lab Donna Parada [facility] PROFESSIO ON LICENSE OF [facility] 1.2840.114 350.1.13.10 4.2.7.2.686 [id number] [facility] 2021-07-04 15:45:00 2021-07-04 15:45:00 Outpatient R TAL [facility] [id number] [facility] 2021-07-04 15:45:00 2021-07-04 15:45:00 Outpatient R DONNA PARADA [facility] [id number] [facility] 2021-07-04 00:00:00 2021-07-04 00:00:00 Telephone Donna Parada [facility] 1.2.840.114 350.1.13.10 4.2.7.2.686 [id number] [facility] 2021-07-02 08:30:00 2021-07-02 09:08:41 Office Visit Donna Parada [facility] 1..840.114 350.1.13.10 4.2.7.2.686 [id number] [facility] 2021-07-02 08:30:00 2021-07-02 09:08:41 Outpatient R DONNA PARADA [facility] [id number] [facility] 2021-07-02 08:30:00 2021-07-02 09:08:41 Outpatient R DONNA PARADA [facility] [id number] [facility] 2021-07-02 08:30:00 2021-07-02 08:30:00 [facility] [id number] [facility] 2021-06-20 00:00:00 2021-06-20 00:00:00 Telephone Khloe Mejia [facility] 1..840.114 350.1.13.10 4.2.7.2.686 [id number] [facility] 2021-06-19 15:59:53 2021-06-19 23:59:00 Hospital Encounter Khloe Mejia [facility] 1.2.840.114 350.1.13.10 4.2.7.2.686 [id number] [facility] 2021-06-19 15:59:53 2021-06-19 23:59:00 Outpatient Ioana KHLOE MEJIA [facility] [id number] [facility] 2021-06-19 15:45:00 2021-06-19 16:00:00 Office Visit Khloe Mejia [facility] 1.840.114 350.1.13.10 4.2.7.2.686 [id number] [facility] 2021-06-19 15:45:00 2021-06-19 15:59:14 Outpatient Ioana KHLOE MEJIA [facility] [id number] [facility] 2021-06-19 15:45:00 2021-06-19 15:45:00 Outpatient Ioana KHLOE MEJIA [facility] [id number] [facility] 2021-06-17 00:00:00 2021-06-17 00:00:00 Refill [facility] 1.840.114 350.1.13.10 4.2.7.2.686 [id number] [facility] 2021-05-29 14:40:00 2021-05-29 14:40:00 Outpatient TONY JACKSON [facility] [id number] [facility] 2021-05-29 14:40:00 2021-05-29 14:05:54 Outpatient TNOY JACKSON [facility] [id number] [facility] 2021-05-29 14:05:45 2021-05-29 14:05:54 Imm/Inj Visit Nurse, Jeremías Popresley [facility] 1..840.114 350.1.13.10 4.2.7.2.686 [id number] [facility] 2021-05-27 00:00:00 2021-05-27 00:00:00 Orders Only Doctor Unassigned, [place] [facility] 1.2.840.114 350.1.13.10 4.2.7.2.686 [id number] [facility] 2021-05-09 07:58:02 2021-05-09 23:59:00 Outpatient KHLOE RABAGO [facility] [id number] [facility] 2021-05-09 07:58:02 2021-05-09 23:59:00 Hospital Encounter [facility] 1.2.840.114 350.1.13.10 4.2.7.2.686 [id number] [facility] 2021-05-09 08:20:00 2021-05-09 08:20:00 Outpatient TONY JACKSON [facility] [id number] [facility] 2021-05-09 07:58:18 2021-05-09 08:13:18 Oyster Shucker Visit Lab, Lucho Mejia [facility] 1.2.840.114 350.1.13.10 4.2.7.2.686 [id number] [facility] 2021-05-09 08:00:00 2021-05-09 08:00:00 Outpatient KHLOE RABAGO [facility] [id number] [facility] 2021-05-08 16:30:00 2021-05-08 16:45:45 Outpatient KHLOE RABAGO [facility] [id number] [facility] 2021-05-08 16:30:00 2021-05-08 16:45:45 Outpatient KHLOE RABAGO [facility] [id number] [facility] 2021-05-08 16:26:37 2021-05-08 16:45:45 Office [facility] 1.2.84.114 350.1.13.10 4.2.7.2.686 [id number] [facility] 2021-04-16 00:00:00 2021-04-16 00:00:00 [facility] Building 1.284.114 350.1.13.10 4.2.7.2.686 [id number] [facility] 2021-04-10 14:00:00 2021-04-10 14:00:00 Outpatient R KHLOE MEJIA [facility] [id number] [facility] 2021-03-20 00:00:00 2021-03-20 00:00:00 Refill Khloe Mejia [facility] Nehemias?[facility] Office Building 1..84.114 350.1.13.10 4.2.7.2.686 [id number] [facility] 2021-03-06 09:29:00 2021-03-06 23:59:00 Hospital [facility] Building 1.84.114 350.1.13.10 4.2.7.2.686 [id number] [facility] 2021-03-06 08:19:07 2021-03-06 09:11:26 Office [facility] 1.284.114 350.1.13.10 4.2.7.2.686 [id number] [facility] 2021-03-06 08:30:00 2021-03-06 08:30:00 Outpatient R GUDELIA MCGRATH [facility] [id number] [facility] 2021-02-25 19:45:00 2021-02-25 19:45:00 Outpatient R UNKNOWN, ATTENDING [facility] [id number] [facility] 2021-02-25 16:04:36 2021-02-25 16:19:36 Urgent Care Melissa Adair Unknown, Attending [facility] 1.2.840.114 350.1.13.10 4.2.7.2.686 [id number] [facility] 2021-02-25 16:04:36 2021-02-25 16:19:36 Urgent Care Melissa Adair Unknown, Attending [facility] 1.2.840.114 350.1.13.10 4.2.7.2.686 [id number] [facility] 2021-02-24 00:00:00 2021-02-24 00:00:00 Telephone [facility] 1.2.840.114 350.1.13.10 4.2.7.2.686 [id number] [facility] 2021-02-24 00:00:00 2021-02-24 00:00:00 Telephone [facility] 1.2.840.114 350.1.13.10 4.2.7.2.686 [id number] [facility] 2021-02-21 19:15:00 2021-02-21 19:15:00 Outpatient R UNKNOWN, ATTENDING [facility] [id number] [facility] 2021-02-21 17:50:49 2021-02-21 18:05:49 Laboratory Only Only, Gal Adult Uc Test Unknown, Attending [facility] 1.2.840.114 350.1.13.10 4.2.7.2.686 [id number] [facility] 2021-02-21 17:50:49 2021-02-21 18:05:49 Laboratory Only Only, Gal Adult Uc Test Unknown, Attending [facility] 1.114 350.1.13.10 4.2.7.2.686 [id number] [facility] 2021-02-12 10:15:00 2021-02-12 10:15:00 Outpatient KHLOE RABAGO [facility] [id number] [facility] 2021-01-22 00:00:00 2021-01-22 00:00:00 Orders Only Doctor Unassigned, [place] [facility] 1.114 350.1.13.10 4.2.7.2.686 [id number] [facility] 2021-01-16 00:00:00 2021-01-16 00:00:00 Telephone Khloe Mejia [facility] Office Building One 1.114 350.1.13.10 4.2.7.2.686 [id number] [facility] 2021-01-15 12:30:40 2021-01-15 12:45:40 Oyster Shucker Visit Pob, Adc Lab Main Khloe Mejia [facility] Building 1.114 350.1.13.10 4.2.7.2.686 [id number] [facility] 2021-01-15 11:00:00 2021-01-15 11:00:00 Outpatient KHLOE RABAGO [facility] [id number] [facility] 2021-01-15 10:40:41 2021-01-15 10:55:41 Office Visit Khloe Mejia [facility] Building One .114 350.1.13.10 4.2.7.2.686 [id number] [facility] 2021-01-09 14:04:53 2021-01-09 14:19:53 Office Visit [facility] 1.84.114 350.1.13.10 4.2.7.2.686 [id number] [facility] 2021-01-09 14:00:00 2021-01-09 14:00:00 Outpatient R DAVID [facility] [id number] [facility] 2021-01-08 09:30:00 2021-01-08 09:30:00 Outpatient R DAVID [facility] [id number] [facility] 2021-01-03 00:00:00 2021-01-03 00:00:00 Telephone Gypsy Cheung [facility] 1..114 350.1.13.10 4.2.7.2.686 [id number] [facility] 2021-01-02 13:33:48 2021-01-02 16:26:16 Office Visit Gypsy Cheung [facility] 1..114 350.1.13.10 4.2.7.2.686 [id number] [facility] 2021-01-02 13:30:00 2021-01-02 13:30:00 Outpatient R GYPSY CHEUNG [facility] [id number] [facility] 2021-01-02 00:00:00 2021-01-02 00:00:00 Orders Only Doctor Unassigned, [place] [facility] 1.114 350.1.13.10 4.2.7.2.686 [id number] [facility] 2020-12-27 00:00:00 2020-12-27 00:00:00 Telephone Khloe Mejia [facility] [place] Office Building One 1..114 350.1.13.10 4.2.7.2.686 [id number] [facility] 2020-12-25 00:00:00 2020-12-25 00:00:00 Orders Only Doctor Unassigned, [place] [facility] 1.2840.114 350.1.13.10 4.2.7.2.686 [id number] [facility] 2020-11-30 09:15:46 2020-11-30 09:42:43 Office Visit Khloe Mejia [facility] Building One 1.840.114 350.1.13.10 4.2.7.2.686 [id number] [facility] 2020-11-30 09:15:00 2020-11-30 09:15:00 Outpatient KHLOE RABAGO [facility] [id number] [facility] 2020-11-12 00:00:00 2020-11-12 00:00:00 Telephone Khloe Mejia [facility] Building One 1.84.114 350.1.13.10 4.2.7.2.686 [id number] [facility] 2020-11-09 13:16:47 2020-11-09 13:36:47 Urgent Care Provider, [facility] 1..114 350.1.13.10 4.2.7.2.686 [id number] [facility] 2020-11-09 13:20:00 2020-11-09 13:20:00 Outpatient RAHEL REDDY [facility] [id number] [facility] 2020-11-06 11:00:00 2020-11-06 11:00:00 Outpatient KHLOE RABAGO [facility] [id number] [facility] 2020-11-06 10:38:57 2020-11-06 10:53:57 Office Visit Khloe Mejia [facility] Office Building One 1.2.840.114 350.1.13.10 4.2.7.2.686 [id number] [facility] 2020-11-05 00:00:00 2020-11-05 00:00:00 Telephone [facility] 1.2840.114 350.1.13.10 4.2.7.2.686 [id number] [facility] 2020-11-01 14:59:05 2020-11-01 23:59:00 Hospital Encounter Bubba Lanza [facility] 1.2.840.114 350.1.13.10 4.2.7.2.686 [id number] [facility] 2020-11-01 00:00:00 2020-11-01 00:00:00 Outpatient R POOL [facility] [id number] [facility] 2020-10-29 16:04:49 2020-10-29 23:59:00 Hospital Encounter Pool [facility] 1.2.840.114 350.1.13.10 4.2.7.2.686 [id number] [facility] 2020-10-29 00:00:00 2020-10-29 00:00:00 Outpatient R POOL [facility] [id number] [facility] 2020-10-26 08:54:57 2020-10-26 09:29:03 [facility] 1.2.840.114 350.1.13.10 4.2.7.2.686 [id number] [facility] 2020-10-26 08:45:00 2020-10-26 08:45:00 Outpatient R BUBBA LANZA [facility] [id number] [facility] 2020-10-05 09:12:37 2020-10-05 09:32:37 Urgent Care Provider, [facility] ..114 350.1.13.10 4.2.7.2.686 [id number] [facility] 2020-10-05 09:20:00 2020-10-05 09:20:00 Outpatient Ioana LOU HENRIQUEZTHIA [facility] [id number] [facility] 2020-09-24 08:45:00 2020-09-24 08:45:00 Outpatient BUBBA HI [facility] [id number] [facility] 2020-09-20 13:25:59 2020-09-20 23:59:00 Hospital Encounter Gypsy Cheung [facility] 1..114 350.1.13.10 4.2.7.2.686 [id number] [facility] 2020-09-20 15:00:00 2020-09-20 15:00:00 Outpatient R GYPSY CHEUNG [facility] [id number] [facility] 2020-09-20 13:01:26 2020-09-20 13:16:26 Office Visit Gypsy Cheung [facility] 1..114 350.1.13.10 4.2.7.2.686 [id number] [facility] 2020-09-19 14:07:47 2020-09-19 14:22:47 Office Visit Khloe Mejia [facility] Office Building One ..114 350.1.13.10 4.2.7.2.686 [id number] [facility] 2020-09-19 14:15:00 2020-09-19 14:15:00 Outpatient R KHLOE MEJIA [facility] [id number] [facility] 2020-09-15 00:00:00 2020-09-15 00:00:00 Refill Khloe Mejia [facility] Building One 1..840.114 350.1.13.10 4.2.7.2.686 [id number] [facility] 2020-09-03 00:00:00 2020-09-03 00:00:00 Telephone Khloe Mejia [facility] One 1..840.114 350.1.13.10 4.2.7.2.686 [id number] [facility] 2020-08-29 10:20:00 2020-08-29 10:20:00 Outpatient LOUISE CENTENO [facility] [id number] [facility] 2020-08-23 10:35:57 2020-08-23 11:34:28 Office Visit Gypsy Cheung [facility] 1..840.114 350.1.13.10 4.2.7.2.686 [id number] [facility] 2020-08-23 10:30:00 2020-08-23 10:30:00 Outpatient R GYPSY CHEUNG [facility] [id number] [facility] 2020-08-22 16:44:08 2020-08-22 23:59:00 Hospital Encounter Gypsy Cheung [facility] 1..840.114 350.1.13.10 4.2.7.2.686 [id number] [facility] 2020-08-22 00:00:00 2020-08-22 00:00:00 Outpatient R GYPSY CHEUNG [facility] [id number] [facility] 2020-08-22 00:00:00 2020-08-22 00:00:00 Telephone Gypsy Cheung [facility] 1.2.840.114 350.1.13.10 4.2.7.2.686 [id number] [facility] 2020-08-17 00:00:00 2020-08-17 00:00:00 Telephone Pool [facility] 1.2.840.114 350.1.13.10 4.2.7.2.686 [id number] [facility] 2020-08-17 00:00:00 2020-08-17 00:00:00 Telephone Khloe Mejia [facility] Office Building One 1.2.840.114 350.1.13.10 4.2.7.2.686 [id number] [facility] 2020-08-16 09:24:39 2020-08-16 23:59:00 [facility] 1.2.840.114 350.1.13.10 4.2.7.2.686 [id number] [facility] 2020-08-16 09:24:39 2020-08-16 09:24:39 Outpatient Ioana LANZA [facility] [id number] [facility] 2020-08-08 08:50:00 2020-08-08 08:50:00 Outpatient LOUISE CENTENO [facility] [id number] [facility] 2020-08-02 10:30:00 2020-08-02 10:30:00 Outpatient LOUISE CENTENO [facility] [id number] [facility] 2020-07-30 00:00:00 2020-07-30 00:00:00 Telephone Pool [facility] 1.2.840.114 350.1.13.10 4.2.7.2.686 [id number] [facility] 2020-07-26 00:00:00 2020-07-26 00:00:00 Orders Only Doctor Unassigned, [place] [facility] 1.2840.114 350.1.13.10 4.2.7.2.686 [id number] [facility] 2020-07-24 08:14:48 2020-07-24 08:29:48 Laboratory Only Only, Adc Test Jose Antonio Kaiser [facility] 1.0.114 350.1.13.10 4.2.7.2.686 [id number] [facility] 2020-07-24 08:15:00 2020-07-24 08:15:00 Outpatient R [facility] [id number] [facility] 2020-07-19 11:15:00 2020-07-19 11:15:00 Outpatient R POOL [facility] [id number] [facility] 2020-07-19 10:49:24 2020-07-19 11:04:24 Oyster Shucker Visit Pob, Adc Lab [facility] 1..114 350.1.13.10 4.2.7.2.686 [id number] [facility] 2020-07-19 00:00:00 2020-07-19 00:00:00 Orders Only Doctor Unassigned, [place] [facility] 1.20.114 350.1.13.10 4.2.7.2.686 [id number] [facility] 2020-07-19 00:00:00 2020-07-19 00:00:00 [facility] 1..114 350.1.13.10 4.2.7.2.686 [id number] [facility] 2020-07-18 08:30:00 2020-07-18 08:30:00 Outpatient R LOUISE JIMENEZ [facility] [id number] [facility] 2020-07-17 08:32:23 2020-07-17 23:59:00 Hospital Encounter [facility] 1.2.840.114 350.1.13.10 4.2.7.2.686 [id number] [facility] 2020-07-17 08:31:15 2020-07-17 08:31:15 Hospital Encounter Tal [facility] 1.2.840.114 350.1.13.10 4.2.7.2.686 [id number] [facility] 2020-07-17 00:00:00 2020-07-17 00:00:00 Outpatient R NIGELFELICITY [facility] [id number] [facility] 2020-07-17 00:00:00 2020-07-17 00:00:00 Orders Only Doctor Unassigned, [place] [facility] 1.2840.114 350.1.13.10 4.2.7.2.686 [id number] [facility] 2020-07-17 00:00:00 2020-07-17 00:00:00 Patient Outreach Tony Ibrahim [facility] 1.2.840.114 350.1.13.10 4.2.7.2.686 [id number] [facility] 2020-07-16 00:00:00 2020-07-16 00:00:00 Orders Only Doctor Unassigned, [place] [facility] 1.2.840.114 350.1.13.10 4.2.7.2.686 [id number] [facility] 2020-07-13 00:00:00 2020-07-13 00:00:00 Transition of Care Allison Donato 1.2.840.114 350.1.13.10 4.2.7.2.686 [id number] [facility] 2020-07-12 13:10:00 2020-07-12 13:10:00 Outpatient LOUISE CENTENO [facility] [id number] [facility] 2020-07-10 20:44:00 2020-07-12 11:15:00 Hospital Encounter Marcello [facility] 1.2.840.114 350.1.13.10 4.2.7.2.686 [id number] [facility] 2020-07-12 00:00:00 2020-07-12 00:00:00 Telephone Donna Parada [facility] Building 1.2.840.114 350.1.13.10 4.2.7.2.686 [id number] [facility] 2020-07-09 00:00:00 2020-07-09 00:00:00 [facility]ill [facility] 1.2.840.114 350.1.13.10 4.2.7.2.686 [id number] [facility] 2020-07-06 11:40:00 2020-07-06 11:40:00 Outpatient LOUISE CENTENO [facility] [id number] [facility] 2020-07-02 10:02:58 2020-07-02 10:53:19 Office Visit [facility] 1.2.840.114 350.1.13.10 4.2.7.2.686 [id number] [facility] 2020-07-02 10:00:00 2020-07-02 10:00:00 Outpatient Ioana DONNA PARADA [facility] [id number] [facility] 2020-06-26 00:00:00 2020-06-26 00:00:00 Telephone Khloe Mejia [facility] Office Building One 1.114 350.1.13.10 4.2.7.2.686 [id number] [facility] 2020-06-18 10:46:31 2020-06-18 11:01:31 Office Visit Khloe Mejia [facility] Building One 1.114 350.1.13.10 4.2.7.2.686 [id number] [facility] 2020-06-18 10:45:00 2020-06-18 10:45:00 Outpatient R KHLOE MEJIA [facility] [id number] [facility] 2020-06-12 00:00:00 2020-06-12 00:00:00 Telephone Khloe Mejia [facility] Office Building One 1. 350.1.13.10 4.2.7.2.686 [id number] [facility] 2020-06-08 16:03:08 2020-06-08 23:59:00 Hospital Encounter Rahel Henriquez [facility] 1.114 350.1.13.10 4.2.7.2.686 [id number] [facility] 2020-06-08 15:15:33 2020-06-08 15:52:37 Urgent Care Provider, [facility] 1.114 350.1.13.10 4.2.7.2.686 [id number] [facility] 2020-06-08 15:20:00 2020-06-08 15:20:00 Outpatient R RAHEL HENRIQUEZ [facility] [id number] [facility] 2020-05-31 07:59:00 2020-05-31 11:36:00 Emergency Nigel Puri [facility] 1.2.840.114 350.1.13.10 4.2.7.2.686 [id number] [facility] 2020-05-31 07:59:00 2020-05-31 11:36:00 Emergency X NIGEL PURI [facility] [id number] [facility] 2020-05-31 00:00:00 2020-05-31 00:00:00 Orders Only Doctor Unassigned, [place] [facility] 1.2.840.114 350.1.13.10 4.2.7.2.686 [id number] [facility] 2020-05-17 12:35:52 2020-05-17 23:59:00 Hospital Encounter Gypsy Cheung [facility] 1.2.840.114 350.1.13.10 4.2.7.2.686 [id number] [facility] 2020-05-17 13:53:15 2020-05-17 14:08:15 Office Visit Mario Hernandez [facility] 1.2840.114 350.1.13.10 4.2.7.2.686 [id number] [facility] 2020-05-17 13:30:00 2020-05-17 13:30:00 Outpatient R GYPSY CHEUNG [facility] [id number] [facility] 2020-05-17 13:30:00 2020-05-17 13:30:00 Outpatient R MARIO HERNANDEZ [facility] [id number] [facility] 2020-05-16 00:00:00 2020-05-16 00:00:00 Telephone Gypsy hCeung [facility] 1.2840.114 350.1.13.10 4.2.7.2.686 [id number] [facility] 2020-05-09 00:00:00 2020-05-09 00:00:00 Refill Khloe Mejia [facility] 1.114 350.1.13.10 4.2.7.2.686 [id number] [facility] 2020-05-02 14:07:42 2020-05-02 14:22:42 Office Visit Khloe Mejia [place] [facility] One .114 350.1.13.10 4.2.7.2.686 [id number] [facility] 2020-05-02 14:15:00 2020-05-02 14:15:00 Outpatient R FEDERICONOREEN [facility] [id number] [facility] 2020-05-01 00:00:00 2020-05-01 00:00:00 Telephone [facility] Office Building One .114 350.1.13.10 4.2.7.2.686 [id number] 044 [id number] [facility] 2020-04-27 00:00:00 2020-04-27 00:00:00 Refill [facility] Office Building One .114 350.1.13.10 4.2.7.2.686 [id number] 044 [id number] [facility] 2020-04-03 10:04:09 2020-04-03 10:14:09 Oyster Shucker Visit Lab, Jeremías Artis I [facility] Office Building One 1.114 350.1.13.10 4.2.7.2.686 [id number] 044 [id number] [facility] 2020-04-03 09:40:00 2020-04-03 09:40:00 Outpatient R KHLOE MEJIA [facility] [id number] [facility] 2020-04-02 16:04:51 2020-04-02 16:19:51 Office Visit Khloe Mejia [facility] Office Building One 1.84.114 350.1.13.10 4.2.7.2.686 [id number] 044 [id number] [facility] 2020-04-02 16:15:00 2020-04-02 16:15:00 Outpatient R KHLOE MEJIA [facility] [id number] [facility] 2020-03-09 00:00:00 2020-03-09 00:00:00 Refill Khloe Mejia [facility] Office Building One 1.84.114 350.1.13.10 4.2.7.2.686 [id number] 044 [id number] [facility] 2020-03-09 00:00:00 2020-03-09 00:00:00 Telephone Khloe Mejia [facility] Office Building One 1.84.114 350.1.13.10 4.2.7.2.686 [id number] 044 [id number] [facility] 2020-03-05 19:24:00 2020-03-06 01:24:00 Emergency Karime Shields [facility] 1.84.114 350.1.13.10 4.2.7.2.686 [id number] [facility] 2020-02-29 00:00:00 2020-02-29 00:00:00 Telephone Khloe Mejia [facility] 1.84.114 350.1.13.10 4.2.7.2.686 [id number] 044 [id number] [facility] 2020-02-27 00:00:2020-02-27 00:00:00 Telephone Khloe Mejia mack [facility] Office Building One 1.2840.114 350.1.13.10 4.2.7.2.686 [id number] 044 [id number] [facility] 2020-01-18 12:41:01 2020-01-18 13:08:26 Office Visit [facility] 1.20.114 350.1.13.10 4.2.7.2.686 [id number] [facility] 2020-01-18 13:00:00 2020-01-18 13:00:00 Outpatient R GYPSY CHEUNG [facility] [id number] [facility] 2020-01-12 08:15:00 2020-01-12 08:15:00 Outpatient KHLOE RABAGO [facility] [id number] [facility] 2020-01-12 07:52:53 2020-01-12 08:07:53 Telemedici ne Visit Khloe Mejia [facility] Building 1.284.114 350.1.13.10 4.2.7.2.686 [id number] 044 [id number] [facility] 2020-01-09 14:44:37 2020-01-09 16:00:55 Office Visit Mario Hernandez [facility] 1.284.114 350.1.13.10 4.2.7.2.686 [id number] [facility] 2020-01-09 15:00:00 2020-01-09 15:00:00 Outpatient MARIO SORTO [facility] [id number] [facility] 2020-01-04 15:33:18 2020-01-04 23:59:00 Hospital Encounter Gypsy Cheung [facility] 1.284.114 350.1.13.10 4.2.7.2.686 [id number] [facility] 2020-01-04 00:00:00 2020-01-04 00:00:00 Outpatient R GYPSY CHEUNG [facility] [id number] [facility] 2020-01-04 00:00:00 2020-01-04 00:00:00 Telephone Gypsy [facility]ung [facility] 1..114 350.1.13.10 4.2.7.2.686 [id number] [facility] 2019-12-30 12:47:06 2019-12-30 13:25:34 [facility] 1.114 350.1.13.10 4.2.7.2.686 [id number] [facility] 2019-12-30 13:00:00 2019-12-30 13:00:00 Outpatient R NIGELFELICITY [facility] [id number] [facility] 2019-12-30 00:00:00 2019-12-30 00:00:00 Telephone Khloe Mejia [facility] 1.114 350.1.13.10 4.2.7.2.686 [id number] 044 [id number] [facility] 2019-12-30 00:00:00 2019-12-30 00:00:00 Orders Only Doctor Unassigned, [place] [facility] 1.114 350.1.13.10 4.2.7.2.686 [id number] [id number] [facility] 2019-12-29 12:49:34 2019-12-29 13:39:05 Office Visit Gypsy Cheung [facility] 1.2.114 350.1.13.10 4.2.7.2.686 [id number] [facility] 2019-12-29 13:00:00 2019-12-29 13:00:00 Outpatient R GYPSY CHEUNG [facility] [id number] [facility] 2019-12-29 00:00:00 2019-12-29 00:00:00 Transition of Care Allison Donato 1.2.840.114 350.1.13.10 4.2.7.2.686 [id number] [facility] 2019-12-29 00:00:00 2019-12-29 00:00:00 Letter (Out) Doctor Unassigned, [place] [facility] 1.2840.114 350.1.13.10 4.2.7.2.686 [id number] 044 [id number] [facility] 2019-12-29 00:00:00 2019-12-29 00:00:00 Orders Only Doctor Unassigned, [place] [facility] 1.2840.114 350.1.13.10 4.2.7.2.686 [id number] [id number] [facility] 2019-12-27 22:47:29 2019-12-28 17:04:00 Emergency Markus Cagle Vladimir [facility] 1.2.840.114 350.1.13.10 4.2.7.2.686 [id number] [facility] 2019-12-28 09:30:00 2019-12-28 09:30:00 Outpatient VENESSA PALMER [facility] [id number] [facility] 2019-12-27 09:56:00 2019-12-27 22:46:00 Hospital Encounter Gypsy Cheung [facility] 1.2.840.114 350.1.13.10 4.2.7.2.686 [id number] 804 [id number] [facility] 2019-12-27 00:00:00 2019-12-27 00:00:00 Outpatient R GYPSY CHEUNG [facility] [id number] [facility] 2019-12-27 00:00:00 2019-12-27 00:00:00 Orders Only Doctor Unassigned, [place] [facility] 1.2.114 350.1.13.10 4.2.7.2.686 [id number] [id number] [facility] 2019-12-27 00:00:00 2019-12-27 00:00:00 Telephone Khloe Mejia [facility] Office Building One 1..114 350.1.13.10 4.2.7.2.686 [id number] 044 [id number] [facility] 2019-12-19 00:00:00 2019-12-19 00:00:00 Orders Only Doctor Unassigned, [place] [facility] 1.2.114 350.1.13.10 4.2.7.2.686 [id number] [id number] [facility] 2019-08-17 13:49:51 2019-12-12 13:08:28 Office Visit Gypsy Cheung [facility] 1..114 350.1.13.10 4.2.7.2.686 [id number] [facility] 2019-12-09 11:24:38 2019-12-09 11:39:38 Oyster Shucker Visit 2, Adc Lab Khloe Mejia [facility] Building 1.84.114 350.1.13.10 4.2.7.2.686 [id number] [facility] 2019-12-09 11:30:00 2019-12-09 11:30:00 Outpatient R KHLOE MEJIA [facility] [id number] [facility] 2019-12-09 10:41:31 2019-12-09 11:19:15 Office Visit Khloe Mejia [facility] Building 1.2840.114 350.1.13.10 4.2.7.2.686 [id number] [id number] [facility] 2019-12-09 00:00:00 2019-12-09 00:00:00 Telephone Gypsy Cheung [facility] 1.2840.114 350.1.13.10 4.2.7.2.686 [id number] [facility] 2019-12-09 00:00:00 2019-12-09 00:00:00 Telephone [facility]see Khloe [facility] Building 1.2.114 350.1.13.10 4.2.7.2.686 [id number] 044 [id number] [facility] 2019-12-08 08:57:47 2019-12-08 23:59:00 Outpatient R CHEUNGGYPSY [facility] [id number] [facility] 2019-12-08 08:57:00 2019-12-08 23:59:00 Hospital Encounter Gypsy Cheung [facility] 1.2840.114 350.1.13.10 4.2.7.2.686 [id number] [facility] 2019-12-08 08:49:12 2019-12-08 09:06:15 Office Visit Gypsy Cheung [facility] 1.2840.114 350.1.13.10 4.2.7.2.686 [id number] [facility] 2019-11-07 00:00:00 2019-11-07 00:00:00 Refill GueroKhloe pastor [facility] Office Building One 1.2840.114 350.1.13.10 4.2.7.2.686 [id number] 044 [id number] [facility] 2019-10-31 15:30:00 2019-10-31 15:30:00 Outpatient DONNA KEITH [facility] [id number] [facility] 2019-10-18 00:00:00 2019-10-18 00:00:00 Telephone [facility] Office [facility] One 1.2.840.114 350.1.13.10 4.2.7.2.686 [id number] 044 [id number] [facility] 2019-10-11 08:00:00 2019-10-11 08:00:00 Outpatient Ioana PARADA DONNA [facility] [id number] [facility] 2019-10-05 15:00:00 2019-10-05 15:00:00 Outpatient Ioana MEJIA [facility] [id number] [facility] 2019-10-05 07:58:16 2019-10-05 08:28:16 Telemedici ne Visit [facility] 1.2.840.114 350.1.13.10 4.2.7.2.686 [id number] [id number] [facility] 2019-09-26 00:00:00 2019-09-26 00:00:00 Refill [facility] Office Building One 1.2.840.114 350.1.13.10 4.2.7.2.686 [id number] [id number] [facility] 2019-09-15 10:55:52 2019-09-15 11:18:23 Office Visit Mario Hernandez [facility] 1.2.840.114 350.1.13.10 4.2.7.2.686 [id number] [facility] 2019-09-15 11:00:00 2019-09-15 11:00:00 Outpatient R MARIO HERNANDEZ [facility] [id number] [facility] 2019-09-12 10:36:56 2019-09-12 10:51:56 Office Visit [facility] Office Building One .114 350.1.13.10 4.2.7.2.686 [id number] [facility] 2019-09-12 10:45:00 2019-09-12 10:45:00 Outpatient Ioana MEJIA KHLOE [facility] [id number] [facility] 2019-09-07 00:00:00 2019-09-07 00:00:00 Refrachael Mejia [facility] Office Building One .114 350.1.13.10 4.2.7.2.686 [id number] [id number] [facility] 2019-09-01 09:33:33 2019-09-01 09:55:01 Office Visit [facility] Office Building One 1.114 350.1.13.10 4.2.7.2.686 [id number] 044 [id number] [facility] 2019-09-01 09:15:00 2019-09-01 09:15:00 Outpatient Ioana MEDEIROSJODYKHLOE [facility] [id number] [facility] 2019-08-31 00:00:00 2019-08-31 00:00:00 Lacey [facility] Office Building One .114 350.1.13.10 4.2.7.2.686 [id number] 044 [id number] [facility] 2019-08-24 00:00:00 2019-08-24 00:00:00 Telephone Gypsy Cheung [facility] 1..114 350.1.13.10 4.2.7.2.686 [id number] [facility] 2019-08-17 14:15:34 2019-08-17 23:59:00 Outpatient GYPSY CHEUNG [facility] [id number] [facility] 2019-08-17 14:15:00 2019-08-17 23:59:00 Hospital Encounter Gypsy Cheung [facility] 1..114 350.1.13.10 4.2.7.2.686 [id number] [facility] 2019-08-17 14:00:00 2019-08-17 14:29:01 Outpatient R GYPSY CHEUNG [facility] [id number] [facility] 2019-07-14 14:14:00 2019-07-14 23:59:00 Hospital Encounter Khloe Mejia mack [facility] 1..114 350.1.13.10 4.2.7.2.686 [id number] [facility] 2019-07-14 00:00:00 2019-07-14 23:59:00 Outpatient KHLOE RABAGO [facility] [id number] [facility] 2019-07-14 14:00:00 2019-07-14 14:13:00 Hospital Encounter Khloe Mejia [facility] 1..114 350.1.13.10 4.2.7.2.686 [id number] [facility] 2019-07-14 00:00:00 2019-07-14 00:00:00 Telephone Khloe Mejia [facility] Office Building One 1.114 350.1.13.10 4.2.7.2.686 [id number] 044 [id number] [facility] 2019-07-13 00:00:00 2019-07-13 00:00:00 Orders Only Doctor Unassigned, [place] [facility] 1.0.114 350.1.13.10 4.2.7.2.686 [id number] [facility] 2019-06-27 15:10:08 2019-06-27 23:59:00 Outpatient Ioana GYPSY CHEUNG [facility] [id number] [facility] 2019-06-27 15:10:08 2019-06-27 23:59:00 Outpatient Ioana SKYE GYPSY [facility] [id number] [facility] 2019-06-27 14:29:02 2019-06-27 15:22:01 Office Visit Gypsy Cheung [facility] 1..114 350.1.13.10 4.2.7.2.686 [id number] [facility] 2019-06-20 06:20:00 2019-06-20 08:55:00 Outpatient [facility] [id number] [facility] 2019-05-30 06:25:00 2019-05-30 08:53:00 Outpatient Ioana [facility] [id number] [facility] 2019-03-15 14:47:11 2019-03-15 17:10:51 Ancillary Visit Nesha Fontenot [facility] 1.84.114 350.1.13.10 4.2.7.2.686 [id number] [facility] 2019-03-15 16:21:20 2019-03-15 16:36:20 Office Visit Khloe Mejia [facility] Office Building One 1.84.114 350.1.13.10 4.2.7.2.686 [id number] [facility] 2019-03-11 07:51:02 2019-03-11 11:59:49 Ancillary Visit Annalisa Hyatt Craig L [facility] Building 1.84.114 350.1.13.10 4.2.7.2.686 [id number] [facility] 2019-03-08 14:52:42 2019-03-08 15:52:30 Ancillary Visit KaityDelicia Craig L [facility] Building 1.2840.114 350.1.13.10 4.2.7.2.686 [id number] [facility] 2019-03-04 08:03:12 2019-03-04 08:54:01 Ancillary Visit Annalisa Hyatt Craig L [facility] Building 1.2840.114 350.1.13.10 4.2.7.2.686 [id number] [facility] 2019-03-04 00:00:00 2019-03-04 00:00:00 Orders Only Doctor Unassigned, [place] [facility] 1.2840.114 350.1.13.10 4.2.7.2.686 [id number] [id number] [facility] 2019-02-25 00:00:00 2019-02-25 00:00:00 Patient Outreach Bubba Sortoine Yanemodesta Miguelangel Rizzo 1.2840.114 350.1.13.10 4.2.7.2.686 [id number] [facility] 2019-02-24 08:23:58 2019-02-24 09:05:00 Emergency Nigel Puri [facility] 1.2840.114 350.1.13.10 4.2.7.2.686 [id number] 084 [id number] [facility] 2019-02-24 00:00:00 2019-02-24 00:00:00 Orders Only Doctor Unassigned, [place] [facility] 1.2840.114 350.1.13.10 4.2.7.2.686 [id number] [facility] 2019-02-23 00:00:00 2019-02-23 00:00:00 Telephone Khloe Mejia [facility] Office Building One 1.2840.114 350.1.13.10 4.2.7.2.686 [id number] 044 [id number] [facility] 2019-02-07 08:50:36 2019-02-07 09:36:00 Emergency Nigel Puri [facility] 1.2.840.114 350.1.13.10 4.2.7.2.686 [id number] [facility] 2019-02-02 00:00:00 2019-02-02 00:00:00 Telephone Gypsy Cheung [facility] 1.2840.114 350.1.13.10 4.2.7.2.686 [id number] [facility] 2019-01-31 16:01:39 2019-01-31 23:59:00 Outpatient GYPSY CHEUNG [facility] [id number] [facility] 2019-01-31 16:01:39 2019-01-31 23:59:00 Hospital Encounter Gypsy Cheung [facility] 1.2.840.114 350.1.13.10 4.2.7.2.686 [id number] [facility] 2019-01-31 15:44:06 2019-01-31 16:15:17 Office Visit Gypsy Cheung [facility] [place] 1.2.840.114 350.1.13.10 4.2.7.2.686 [id number] [facility] 2019-01-28 10:50:25 2019-01-28 11:05:25 Office Visit Khloe Mejia [facility] Office Building One 1.2840.114 350.1.13.10 4.2.7.2.686 [id number] [id number] [facility] 2019-01-28 10:50:25 2019-01-28 11:05:25 Office Visit Khloe Mejia [facility] Office Building One 1.2.840.114 350.1.13.10 4.2.7.2.686 [id number] [id number] 2019-01-10 16:15:00 2019-01-10 16:13:37 Outpatient R GYPSY CHEUNG [facility] [id number] [facility] Results Test Description Test Time Test Comments Results Result Co mments Source Ric Lazo [id number] 03:27:15* Test Item Value Reference Range Interpretation Comme nts TROPONIN I (test code = 1611527009) 0.010 ng/mL <=0.034 OMAYRA (test code = OMAYRA) Reference (Normal) Range (defined by the 99th percentile reference limit): <= 0.034 ng/mL Note: Cardiac troponin begins to rise 3-4 hours after the onset of ischemia. Repeat in 4-6 hours if the sample was drawn within 3-4 hours of the onset of the symptom and found normal. Diagnosis of myocardial injury is made with acute changes in cTn concentrations with at least one serial sample above the 99th percentile upper reference limit (URL), taken together with the patient's clinical presentation. Biotin has been reported to cause a negative bias, interpret results relative to patient's use of biotin. Lab Interpretation (test code = 30379-3) Normal [facility] (46666)2023-03-30 03:16:18* Test Item Value Reference Range Interpretation Comme nts NA (test code = 0616057289) 139 mmol/L 135-145 K (test code = 6795036115) 4.2 mmol/L 3.5-5.0 CL (test code = 6189199055) 104 mmol/L 98-108 CO2 TOTAL (test code = 8043515160) 25 mmol/L 23-31 AGAP (test code = 8518926587) 10 2-16 BUN (test code = 8850953580) 13 mg/dL 7-23 GLUCOSE (test code = 1281880677) 92 mg/dL 70-110 CREATININE (test code = 1122374449) 0.80 mg/dL 0.50-1.04 TOTAL BILI (test code = 0322792088) 0.7 mg/dL 0.1-1.1 CALCIUM (test code = 4358261361) 9.0 mg/dL 8.6-10.6 T PROTEIN (test code = 4125881546) 8.2 g/dL 6.3-8.2 ALBUMIN (test code = 2184565405) 4.6 g/dL 3.5-5.0 ALK PHOS (test code = 2014220335) 78 U/L 34-122 ALTv (test code = 1742-6) 19 U/L 5-35 AST(SGOT) (test code = 0538075451) 40 U/L 13-40 eGFR (test code = 4833812136) 69.2 mL/min/1.73m2 OMAYRA (test code = OMAYRA) Association of Glomerular Filtration Rate (GFR) and Staging of Kidney Disease* + + +- +| GFR (mL/min/1.73 m2) ?| With Kidney Damage ?| ?Without Kidney Damage+ ------+ ----+ ------+| ?>90 ?| ?Stage one ?| ? Normal ?+ -+ + -+| ?60-89 ?| ?Stage two ?| ? Decreased GFR ? + + +- +| ?30-59 ?| ?Stage three ?| ? Stage three ? + + +- +| ?15-29 ?| ?Stage four ? | ? Stage four ?+ -+ + -+| ?<15 (or dialysis) ? ?| ?Stage five ? | ? Stage five ?+ -+ + -+ *Each stage assumes the associated GFR level has been in effect for at least three months. ?Stages 1 to 5, with or without kidney disease, indicate chronic kidney disease. Notes: Determination of stages one and two (with eGFR >59mL/min/1.73 m2) requires estimation of kidney damage for at least three months as defined by structural or functional abnormalities of the kidney, manifested by either:Pathological abnormalities or Markers of kidney damage (including abnormalities in the composition of the blood or urine or abnormalities in imaging tests). [facility] HospitalLIPASE, [id number] 03:15:38* Test Item Value Reference Range Interpretation Comme nts LIPASE (test code = 3097347989) 53 U/L 0-220 Lab Interpretation (test cod e = 43025-0) Normal [facility] WITH [id number] 02:53:53* Test Item Value Reference Range Interpretation Comme nts WBC (test code = 6690-2) 8.65 See_Comment [Automated messa ge] The system which generated this result transmitted reference range: 4.30 - 11.10 10*3/?L. The reference range was not used to interpret this result as normal/abnormal. RBC (test code = 789-8) 4.35 See_Comment [Automated messa ge] The system which generated this result transmitted reference range: 3.93 - 5.25 10*6/?L. The reference range was not used to interpret this result as normal/abnormal. HGB (test code = 718-7) 11.4 g/dL 11.6-15.0 L HCT (test code = 4544-3) 36.1 % 35.7-45.2 MCV (test code = 787-2) 83.0 fL 80.6-95.5 MCH (test code = 785-6) 26.2 pg 25.9-32.8 MCHC (test code = 786-4) 31.6 g/dL 31.6-35.1 RDW-SD (test code = 29117-2) 46.3 fL 39.0-49.9 RDW-CV (test code = 788-0) 15.3 % 12.0-15.5 PLT (test code = 777-3) 242 See_Comment [Automated messa ge] The system which generated this result transmitted reference range: 166 - 358 10*3/?L. The reference range was not used to interpret this result as normal/abnormal. MPV (test code = 85912-5) 10.8 fL 9.5-12.9 NRBC/100 WBC (test code = 5576849711) 0.0 See_Comment [Automated [employer] ssage] The system which generated this result transmitted reference range: 0.0 - 10.0 /100 WBCs. The reference range was not used to interpret this result as normal/abnormal. NRBC x10^3 (test code = 8895480336) See_Comment [Automated messa ge] The system which generated this result transmitted reference range: 10*3/?L. The reference range was not used to interpret this result as normal/abnormal. GRAN MAT (NEUT) % (test code = 770-8) 51.9 % IMM GRAN % (test code = 9671594413) 0.20 % LYMPH % (test code = 736-9) 37.6 % MONO % (test code = 5905-5) 7.6 % EOS % (test code = 713-8) 2.1 % BASO % (test code = 706-2) 0.6 % GRAN MAT x10^3(ANC) (test code = 9216721491) 4.49 10*3/uL 1.88-7.09 IMM GRAN x10^3 (test code = 7843806794) 0.00-0.06 LYMPH x10^3 (test code = 731-0) 3.25 10*3/uL 1.32-3.29 MONO x10^3 (test code = 742-7) 0.66 10*3/uL 0.33-0.92 EOS x10^3 (test code = 711-2) 0.18 10*3/uL 0.03-0.39 BASO x10^3 (test code = 704-7) 0.05 10*3/uL 0.01-0.07 Lab Interpretation (test code = 79822-8) Abnormal [facility] [id number] 17:43:41* Test Item Value Reference Range Interpretation Comments TROPONIN I (test code = 5087243401) 0.006 ng/mL See_Comment [Automated message] The system which generated this result transmitted reference range: <=0.034. The reference range was not used to interpret this result as normal/abnormal. OMAYRA (test code = OMAYRA) Reference (Normal) Range (defined by the 99th percentile reference limit): <= 0.034 ng/mL Note: Cardiac troponin begins to rise 3-4 hours after the onset of ischemia. Repeat in 4-6 hours if the sample was drawn within 3-4 hours of the onset of the symptom and found normal. Diagnosis of myocardial injury is made with acute changes in cTn concentrations with at least one serial sample above the 99th percentile upper reference limit (URL), taken together with the patient's clinical presentation. Biotin has been reported to cause a negative bias, interpret results relative to patient's use of biotin. Lab Interpretation (test code = 28164-1) [id number] 14:21:05* Test Item Value Reference Range Interpretation Comments TROPONIN I (test code = [id number]) 0.003 ng/mL See_Comment [Automated message] The system which generated this result transmitted reference range: <=0.034. The reference range was not used to interpret this result as normal/abnormal. OMAYRA (test code = OMAYRA) Reference (Normal) Range (defined by the 99th percentile reference limit): <= 0.034 ng/mL Note: Cardiac troponin begins to rise 3-4 hours after the onset of ischemia. Repeat in 4-6 hours if the sample was drawn within 3-4 hours of the onset of the symptom and found normal. Diagnosis of myocardial injury is made with acute changes in cTn concentrations with at least one serial sample above the 99th percentile upper reference limit (URL), taken together with the patient's clinical presentation. Biotin has been reported to cause a negative bias, interpret results relative to patient's use of biotin. Lab Interpretation (test code = 16020-0) [id number] 14:17:48* Test Item Value Reference Range Interpretation Comme [facility] NT-proBNP (test code = 3759586089) 32 pg/mL See_Comment [Automated message] The system which generated this result transmitted reference range: <=450. The reference range was not used to interpret this result as normal/abnormal. OMAYRA (test code = OMAYRA) Biotin has been reported to cause a negative bias, interpret results relative to patient's use of biotin. Lab Interpretation (test code = 64169-1) Normal [facility] THRMPLAS [id number] 14:09:46* Test Item Value Reference Range Interpretation Comme nts APTT Patient (test code = 3173-2) See_Comment [Automated message] The system which generated this result transmitted reference range: 23 - 38 Seconds. The reference range was not used to interpret this result as normal/abnormal. OMAYRA (test code = OMAYRA) The [facility] patient population mean normal value for aPTT is 30 seconds. Lab Interpretation (test code = 24862-6) Normal [facility] Hospital[facility] METABOLIC PANEL ([id number])2021-12-28 14:09:06* Test Item Value Reference Range Interpretation Comme nts NA (test code = 8733682389) 140 mmol/L 135-145 K (test code = 3258990866) 3.5 mmol/L 3.5-5.0 CL (test code = 3956604856) 105 mmol/L 98-108 CO2 TOTAL (test code = 4427222091) 27 mmol/L 23-31 AGAP (test code = 9029390911) 2-16 BUN (test code = 2594330950) 14 mg/dL 7-23 GLUCOSE (test code = 2729384985) 120 mg/dL 70-110 H CREATININE (test code = 5937061151) 0.80 mg/dL 0.50-1.04 TOTAL BILI (test code = 8699938743) 0.9 mg/dL 0.1-1.1 CALCIUM (test code = 3413542088) 8.9 mg/dL 8.6-10.6 T PROTEIN (test code = 4039248404) 6.8 g/dL 6.3-8.2 ALBUMIN (test code = 3602267810) 4.1 g/dL 3.5-5.0 ALK PHOS (test code = 5766251779) 92 U/L 34-122 ALTv (test code = 1742-6) 14 U/L 5-35 AST(SGOT) (test code = 1207001142) 24 U/L 13-40 eGFR (test code = 9174898524) mL/min/1.73m2 OMAYRA (test code = OMAYRA) Association of Glomerular Filtration Rate (GFR) and Staging of Kidney Disease* + --+ --+ ------+| GFR (mL/min/1.73 m2) ?| With Kidney Damage ?| ?Without Kidney Damage+ --------+ --------+ +| ?>90 ?| ?Stage one ?| ? Normal ?+ ---+ ---+ -------+| ?60-89 ?| ?Stage two ?| ? Decreased GFR ? + --+ --+ ------+| ?30-59 ?| ?Stage three ?| ? Stage three ? + --+ --+ ------+| ?15-29 ?| ?Stage four ? | ? Stage four ?+ ---+ ---+ -------+| ?<15 (or dialysis) ? ?| ?Stage five ? | ? Stage five ?+ ---+ ---+ -------+ *Each stage assumes the associated GFR level has been in effect for at least three months. ?Stages 1 to 5, with or without kidney disease, indicate chronic kidney disease. Notes: Determination of stages one and two (with eGFR >59mL/min/1.73 m2) requires estimation of kidney damage for at least three months as defined by structural or functional abnormalities of the kidney, manifested by either:Pathological abnormalities or Markers of kidney damage (including abnormalities in the composition of the blood or urine or abnormalities in imaging tests). Lab Interpretation (test code = 74610-7) Abnormal [facility] HospitalPROT[facility]OM[facility] TIME / [id number] 14:07:25* Test Item Value Reference Range Interpretation Comme nts PROTIME PATIENT (test code = 5964-2) See_Comment [Automated Pyreg] The system which generated this result transmitted reference range: 12.0 - 14.7 Seconds. The reference range was not used to interpret this result as normal/abnormal. INR (test code = 6301-6) Normal INR <1.1; Warfarin Therapeutic range 2.0 to 3.0 or 2.5 to 3.5, depending upon the indications. Lab Interpretation (test code = 11858-3) Normal [facility] HospitalCBC WITH [id number] 13:58:05* Test Item Value Reference Range Interpretation Comme nts WBC (test code = 6690-2) See_Comment [Automated Pyreg] The system which generated this result transmitted reference range: 4.30 - 11.10 10*3/?L. The reference range was not used to interpret this result as normal/abnormal. RBC (test code = 789-8) See_Comment [Automated Pyreg] The system which generated this result transmitted reference range: 3.93 - 5.25 10*6/?L. The reference range was not used to interpret this result as normal/abnormal. HGB (test code = 718-7) 10.7 g/dL 11.6-15.0 L HCT (test code = 4544-3) 33.5 % 35.7-45.2 L MCV (test code = 787-2) 80.1 fL 80.6-95.5 L MCH (test code = 785-6) 25.6 pg 25.9-32.8 L MCHC (test code = 786-4) 31.9 g/dL 31.6-35.1 RDW-SD (test code = 22801-3) 43.8 fL 39.0-49.9 RDW-CV (test code = 788-0) 15.1 % 12.0-15.5 PLT (test code = 777-3) See_Comment [Automated messa ge] The system which generated this result transmitted reference range: 166 - 358 10*3/?L. The reference range was not used to interpret this result as normal/abnormal. MPV (test code = 53211-6) 10.3 fL 9.5-12.9 NRBC/100 WBC (test code = 9938575533) See_Comment [Automated [employer] ssage] The system which generated this result transmitted reference range: 0.0 - 10.0 /100 WBCs. The reference range was not used to interpret this result as normal/abnormal. NRBC x10^3 (test code = 2202833222) <0.01 See_Comment [Automated [employer] ge] The system which generated this result transmitted reference range: 10*3/?L. The reference range was not used to interpret this result as normal/abnormal. GRAN MAT (NEUT) % (test code = 770-8) 62.5 % IMM GRAN % (test code = 4265393174) 0.40 % LYMPH % (test code = 736-9) 28.7 % MONO % (test code = 5905-5) 6.7 % EOS % (test code = 713-8) 1.2 % BASO % (test code = 706-2) 0.5 % GRAN MAT x10^3(ANC) (test code = 1819101912) 5.24 10*3/uL 1.88-7.09 IMM GRAN x10^3 (test code = 4240803739) 0.03 10*3/uL 0.00-0.06 LYMPH x10^3 (test code = 731-0) 2.40 10*3/uL 1.32-3.29 MONO x10^3 (test code = 742-7) 0.56 10*3/uL 0.33-0.92 EOS x10^3 (test code = 711-2) 0.10 10*3/uL 0.03-0.39 BASO x10^3 (test code = 704-7) 0.04 10*3/uL 0.01-0.07 Lab Interpretation (test code = 20792-1) Abnormal [facility]"
[2024-06-16 23:50] LABS: Absolute Eosinophils 0.3 K/uL (0-0.5); Absolute Lymphocytes (CBC) 2.4 K/uL (0.7-4.9); Absolute Monocytes 0.6 K/uL (0.1-1.3); Absolute Neutrophil 3.4 K/uL (1.8-8.0); Basophils % 0.6 % (0-1.3); Eosinophils % 4.5 % (0-4.4); Hematocrit 33.8 % (36.0-45.0); Lymphocytes % 35.5 % (15.3-44.8); MCHC 32.4 g/dL (32.0-36.0); MCV 83.3 fL (80-100); MPV 7.7 fL (7.6-11.3); Monocytes % 8.3 % (3.3-12.3); Neutrophils % 51.1 % (41.7-73.7); Nucleated Red Blood Cells % 0.2 % (0-0); Platelets 290 thou/uL (152-406); RBC Red Blood Cell Count 4.06 M/uL (3.86-4.86); Red Cell Distribution Width 15.1 % (12.1-15.2)
[2024-06-17 00:12] LABS: Albumin 3.4 g/dL (3.4-5.0); Albumin/Globulin Ratio 0.9 (1.1-1.8); Anion Gap 8.3 mEq/L (5.0-15.0); Bilirubin Total 0.3 mg/dL (0.2-1.0); Globulin 3.8 g/dL (2.3-3.5); Potassium 3.3 mEq/L (3.5-5.1); Protein, Total 7.2 g/dL (6.4-8.2)
--- NOTE | 2024-06-17 00:51 | EDPHYS ---
Physician Documentation [facility] Name: Magda Bernal Age: 79 yrs Sex: Female : 1945 Arrival Date: 06/16/2024 Time: 23:20 Bed 18 Private MD: ED Physician Barry Mendez HPI: 06/17 00:47 This 79 yrs old Black or Female presents to ER via Ambulatory with dr5 complaints of Cough, Congestion, Fever. 00:47 The patient or guardian reports cough, that is intermittent. Patient is an 79-year-old dr5 female with history of hypertension coming in with cough, congestion, subjective fever this been going on since today. Patient reports taking Mucinex with mild relief.. Historical: - Allergies: 06/16 23:32 Prednisone; cp4 23:32 TETRACYCLINES; cp4 - Home Meds: 23:32 amlodipine oral [Active]; atorvastatin oral [Active]; losartan oral [Active]; cp4 - PMHx: 23:32 HTN; cp4 - PSHx: 23:32 bakers cyst; Cholecystectomy; hysterectomy; cp4 - Immunization history:: Adult Immunizations up to date. - Infectious Disease History:: Denies. - Social history:: Smoking status: Patient denies any tobacco usage or history of. ROS: 06/17 00:47 Constitutional: as per hpi dr5 Exam: 00:47 Constitutional: This is a well developed, well nourished patient who is awake, alert, dr5 and in no acute distress. Head/Face: Normocephalic, atraumatic. Eyes: Pupils equal round and reactive to light, extra-ocular motions intact. Lids and lashes normal. Conjunctiva and sclera are non-icteric and not injected. Cornea within normal limits. Periorbital areas with no swelling, redness, or edema. ENT: Nares patent. No nasal discharge, no septal abnormalities noted. Tympanic membranes are normal and external auditory canals are clear. Oropharynx with no redness, swelling, or masses, exudates, or evidence of obstruction, uvula midline. Mucous membranes moist. Chest/axilla: Normal chest wall appearance and motion. Nontender with no deformity. No lesions are appreciated. Cardiovascular: Regular rate and rhythm with a normal S1 and S2. Normal PMI, no JVD. No pulse deficits. Respiratory: Lungs have equal breath sounds bilaterally, clear to auscultation. No rales, rhonchi or wheezes noted. No increased work of breathing, no retractions or nasal flaring. Abdomen/GI: Soft, non-tender, non-distended Skin: Warm, dry with normal turgor. Normal color with no rashes, no lesions, and no evidence of cellulitis. Neuro: Awake and alert, GCS 15, oriented to person, place, time, and situation. Cranial nerves II-XII grossly intact. Motor strength 5/5 in all extremities. Sensory grossly intact. Cerebellar exam normal. Normal gait. Vital Signs: 06/16 23:33 Pulse 79; Resp 18; Temp 98.3; Pulse Ox 99% ; Pain 0/10; cp4 23:41 BP 154 / 70; Pulse 72; Resp 18; Pulse Ox 99% on R/A; Pain 0/10; rg5 06/17 00:39 BP 148 / 60; Pulse 73; Resp 17; Temp 98.5; Pulse Ox 99% on R/A; Pain 0/10; rg5 06/16 23:33 Pain Scale: Adult cp4 23:41 Pain Scale: Adult rg5 06/17 00:39 Pain Scale: Adult rg5 MDM: 06/16 23:26 Medical Screening Exam initiated dr5 06/17 00:52 Differential Diagnosis: Bronchitis Influenza Upper Respiratory Infection. Data dr5 reviewed: vital signs, nurses notes, radiologic studies, plain films. Care significantly affected by the following Social Determinants of Health: Poor access to healthcare and/or lack of insurance, Poor access to transportation, Problems related to employment. Counseling: I had a detailed discussion with the patient and/or guardian regarding the historical points, exam findings, and any diagnostic results supporting the discharge/admit diagnosis, the presence of at least one elevated blood pressure reading (>120/80) during this emergency department visit, lab results, radiology results, the need for outpatient follow up, for definitive care, a family practitioner, to return to the emergency department if symptoms worsen or persist or if there are any questions or concerns that arise at home. ED course: Patient's chest x-ray was unremarkable. No signs of pneumonia. Will send patient home with Medrol Dose pack, azithromycin for possible development of community-acquired pneumonia, and cough medication. Recommended patient follow-up primary care doctor in the next 1 to 2 days for recheck. All questions answered. 06/16 23:25 Order name: SARS RAPID dr5 06/16 23:25 Order name: Influenza Screen (a \T\ B) dr5 06/16 23:26 Order name: CBC with Diff; Complete Time: 23:52 dr5 06/16 23:26 Order name: CMP; Complete Time: 00:17 dr5 06/16 23:25 Order name: Chest Single View XRAY dr5 Administered Medications: No medications were administered Disposition: 04:56 Co-signature as Attending Physician, Barry Mendez MD I agree with the assessment sp4 and plan of care. I reviewed the patient's care provided by the Advanced Practice Provider and agree with the diagnosis and treatment plan. Disposition Summary: 06/17/24 00:50 Discharge Ordered Notes: Location: Home dr5 Condition: Stable dr5 Diagnosis - Acute upper respiratory infection, unspecified dr5 Followup: dr5 - With: Emergency Department - When: As needed - Reason: Worsening of condition Followup: dr5 - With: Private Physician - When: 1 - 2 days - Reason: Recheck today's complaints, Continuance of care, Re-evaluation by your physician Discharge Instructions: - Discharge Summary Sheet dr5 - Upper Respiratory Infection, Pediatric dr5 Forms: - Medication Reconciliation Form dr5 - Antibiotic Education dr5 - Patient Portal Instructions dr5 - Leadership Thank You Letter dr5 Prescriptions: - Bromfed DM 2-30-10 mg/5 mL Oral syrup - administer 10 milliliter ORAL route every 6 hours As needed as needed for dr5 allergy symptoms; 240 milliliter; Refills: 0, Product Selection Permitted - Zithromax Z-Pablo 250 mg Oral Tablet - take 1 tablet ORAL route as directed for 5 days Day 1 - take two (2) tablets dr5 one time. Day 2, 3, 4 , 5 take one (1) tablet once daily.; 6 tablet; Refills: 0, Product Selection Permitted - Medrol (Pablo) 4 mg Oral Tablets, Dose Pack - take 1 tablet ORAL route as directed - follow package instructions; 1 packet; dr5 Refills: 0, Product Selection Permitted Signatures: Dispatcher [employer] Barry Zapata MD MD sp4 Roseanna Mendez Dustin, RN OPERATING ROOM-C RN OPERATING ROOM-Cdr5 Corrections: (The following items were deleted from the chart) 06/16 23: 23:26 CBC+H.LAB.BRZ ordered. EDMS EDMS 23: COMPREHENSIVE METABOLIC PANEL+C.LAB.BRZ ordered. EDMS EDMS
--- NOTE | 2024-06-17 00:51 | ER ---
Nurse's Notes [facility] Name: Magda Bernal Age: 79 yrs Sex: Female : 1945 Arrival Date: 06/16/2024 Time: 23:20 Bed 18 Private MD: Diagnosis: Acute upper respiratory infection, unspecified Presentation: 06/16 23:33 Chief complaint: Patient states: fever, cough, and congestion that got worse tonight. cp4 Coronavirus screen: Client denies travel out of the [place] in the last 14 days. At this time, the client does not indicate any symptoms associated with coronavirus-19. Ebola Screen: Patient negative for fever greater than or equal to 101.5 degrees Fahrenheit, and additional compatible Ebola Virus Disease symptoms Patient denies exposure to infectious person. Patient denies travel to an Ebola-affected area in the 21 days before illness onset. No symptoms or risks identified at this time. Initial Sepsis Screen: Does the patient meet any 2 criteria? No. Patient's initial sepsis screen is negative. Does the patient have a suspected source of infection? No. Patient's initial sepsis screen is negative. Risk Assessment: Do you want to hurt yourself or someone else? Patient reports no desire to harm self or others. Onset of symptoms is unknown. 23:33 Method Of Arrival: Ambulatory cp4 23:33 Acuity: ANALILIA 3 cp4 Triage Assessment: 23:33 General: Appears in no apparent distress. comfortable, Behavior is calm, cooperative, cp4 appropriate for age. Respiratory: Airway is patent Respiratory effort is even, unlabored. Historical: - Allergies: 23:32 Prednisone; cp4 23:32 TETRACYCLINES; cp4 - Home Meds: 23:32 amlodipine oral [Active]; atorvastatin oral [Active]; losartan oral [Active]; cp4 - PMHx: 23:32 HTN; cp4 - PSHx: 23:32 bakers cyst; Cholecystectomy; hysterectomy; cp4 - Immunization history:: Adult Immunizations up to date. - Infectious Disease History:: Denies. - Social history:: Smoking status: Patient denies any tobacco usage or history of. Screenin:32 [facility] ED Fall Risk Assessment (Adult) History of falling in the last 3 months, cp4 including since admission No falls in past 3 months (0 pts) Confusion or Disorientation No (0 pts) Intoxicated or Sedated No (0 pts) Impaired Gait No (0 pts) Mobility Assist Device Used No (0 pt) Altered Elimination No (0 pt) Score/Fall Risk Level 0 - 2 = Low Risk Oriented to surroundings, Maintained a safe environment, Assessed \T\ reinforced patient's understanding of fall precautions, Hourly rounding (assess needs \T\ fall precautionary measures) done. Abuse screen: Denies threats or abuse. Nutritional screening: No deficits noted. Tuberculosis screening: No symptoms or risk factors identified. Assessment: 23:31 General: Appears in no apparent distress. comfortable, Behavior is calm, cooperative, cp4 appropriate for age. Pain: Denies pain. Neuro: Level of Consciousness is awake, alert, obeys commands, Oriented to person, place, time, situation. Cardiovascular: Patient's skin is warm and dry. Rhythm is sinus rhythm. Respiratory: Airway is patent Respiratory effort is even, unlabored, Breath sounds are clear bilaterally. GI: No deficits noted. : No deficits noted. EENT: No deficits noted. Derm: No deficits noted. Musculoskeletal: No deficits noted. 06/17 00:36 Reassessment: No changes from previously documented assessment. Patient and/or family rg5 updated on plan of care and expected duration. Pain level reassessed. Patient is alert, oriented x 3, equal unlabored respirations, skin warm/dry/pink. 01:00 Reassessment: Patient and/or family updated on plan of care and expected duration. Pain rg5 level reassessed. Patient is alert, oriented x 3, equal unlabored respirations, skin warm/dry/pink. Vital Signs: 06/16 23:33 Pulse 79; Resp 18; Temp 98.3; Pulse Ox 99% ; Pain 0/10; cp4 23:41 BP 154 / 70; Pulse 72; Resp 18; Pulse Ox 99% on R/A; Pain 0/10; rg5 06/17 00:39 BP 148 / 60; Pulse 73; Resp 17; Temp 98.5; Pulse Ox 99% on R/A; Pain 0/10; rg5 06/16 23:33 Pain Scale: Adult cp4 23:41 Pain Scale: Adult rg5 06/17 00:39 Pain Scale: Adult rg5 ED Course: 06/16 23:23 Patient arrived in ED. gm2 23:25 Faustino Florez, RN is Primary Nurse. rg5 23:25 [facility] Barah[facility]C [facility] 23:25 Barry Mendez MD is Attending Physician. dr5 23:32 Bed in low position. Call light in reach. Side rails up X 1. cp4 23:33 Arm band placed on right wrist. Patient placed in waiting room. cp4 23:35 Triage completed. cp4 23:48 Inserted saline lock: 20 gauge in right antecubital area, using aseptic technique. rg5 Blood collected. Flushed with 10 mL NS. 23:54 Chest Single View XRAY In Process Unspecified. EDMS 06/17 01:08 No provider procedures requiring assistance completed. IV discontinued, bleeding rg5 controlled, No redness/swelling at site. Pressure dressing applied. 01:09 Provided Education on: post er care done. rg5 Administered Medications: No medications were administered Medication: 06/16 23:32 VIS not applicable for this client. cp4 Outcome: 06/17 00:50 Discharge ordered by . dr5 01:08 Discharged to home ambulatory, rg5 01:08 Condition: stable 01:08 Discharge instructions given to patient, Instructed on discharge instructions, Demonstrated understanding of instructions, follow-up care, medications, Prescriptions given X 3, 01:09 Patient left the ED. rg5 Signatures: Dispatcher [employer] EDPR Roseanna Mendez 4 Crystal Longoria gm2 Faustino Florez, RN RN rg5 Marc Barahona FNP-C CORE PILER-Cdr5
--- NOTE | 2024-06-17 01:07 | RAD REPORT ---
EXAM DESCRIPTION: XR CHEST 1 VIEW CLINICAL HISTORY: Cough and fever. COMPARISON: None FINDINGS: Cardiac silhouette is within normal limits. There is atherosclerosis. There is no focal parenchymal o r pleural disease. There is no acute osseous process visualized. IMPRESSION: No evidence of acute cardiopulmonary disease. Electronically signed by: Khalif Banks MD 06/17/2024 12:20 AM [facility] Due to temporary technical issues with the PACS/[employer] ([employer]) reporting system, reports are being nakul d by the in-house radiologist without review as a courtesy to ensure prompt reporting the interpreting radiologist is fully responsible for the content of the report. Transcribed Date/Time: 06/17/2024 1:07 AM
[2024-06-17 01:14] LABS: SARS-CoV-2 Antigen CONTROL BLUE LINE VIS/BG OK; SARS-CoV-2 Antigen Rapid Res Negative (Negative)
[2024-06-17 01:35] VITALS: O2SAT 99
[2024-06-17 01:38] VITALS: BP 148/60; TEMP 98.5
== END 2024-06-17 01:09 | disposition home or self-care (01) ==
LOC: ER 23:20
DX: J06.9 Acute upper respiratory infection, unspecified (principal); Z11.52 Encounter for screening for COVID-19; Z88.1 Allergy status to other antibiotic agents
CPT/HCPCS: 36415; 71045; 80053; 85025; 87804; 87811; 99284